=== PATIENT | male | born 1945 | race Caucasian/White ===

== ENCOUNTER 2018-10-18 12:24 | Inpatient (IN) ==
[2018-10-18 14:25] LABS: Basophils % 0.3 %; Eosinophils # 0.4 K/mcL (0.0-0.6); Eosinophils % 5.7 %; Hematocrit 30.5 % (37.5-50.1); Hemoglobin 10.4 g/dL (12.9-16.9); Immature Granulocytes % 0.3 % (0-4); Lymphocytes # 1.3 K/mcL (0.6-4.6); Lymphocytes % 19.3 %; Mean Corpuscular HGB Conc 34.1 g/dL (31.6-35.5); Mean Platelet Volume 9.1 fL (9.4-12.4); Monocytes # 0.7 K/mcL (0.0-1.3); Monocytes % 10.3 %; Neutrophils # 4.4 K/mcL (1.6-8.9); Platelet Count 140 K/mcL (140-400); Red Blood Count 3.59 M/mcL (4.19-5.50); Red Cell Distribution Width 12.9 % (11.5-14.5); Segmented Neutrophils % 64.1 %; White Blood Count 6.9 K/mcL (4.3-11.1)
[2018-10-18 14:30] LABS: INR 1.1
[2018-10-18 14:58] LABS: Albumin 4.3 g/dL (3.5-5.7); Albumin/Globulin Ratio 1.8 (1.1-2.2); Bilirubin,Total 0.7 mg/dL (0.3-1.0); Calcium 9.2 mg/dL (8.6-10.3); Globulin 2.4 g/dL (2.4-3.5); Potassium 3.8 mEq/L (3.5-5.1); Total Protein 6.7 g/dL (6.4-8.9)
[2018-10-18] MEDS ORDERED: *HR* LORazepam 1 MG TABLET PO PRN (15:00)
[2018-10-18] MEDS ORDERED: hydrOXYzine pamoate 25 MG CAPSULE PO PRN ×2 (15:00→16:12)
--- NOTE | 2018-10-18 15:00 | Internal Med History&Physical ---
<Tristan Jeong M - Last Filed: 10/18/18 16:48> Date of Encounter: 10/18/18 Time of Encounter: 15:00 Internal Medicine - H&P: HPI Chief complaint: Right hip fracture Admitted From: Direct Admit Plans for Post Hospital Care: Transfer [facility] Facility History of present illness: Mr. Almazan is a 73 year old male [facility] ([place]) resident w/PMHx of MRDD, CAD s/p CABGx3, HTN, HLD, DM, BPH, anxiety. Direct admit from Dr. Collier to the [facility] hospital service for recent right hip fracture s/p syncope, fall. History difficult to obtain secondary to MRDD, however pt reports falling in bathroom 1 day ago after having successful BM. He states that he has constipation and he was excited to have his first BM in days. Upon standing, he reports the "room spinning around" and fell to the bathroom tile, hitting the back of his head on the wall. He denies LOC. He stated that after the fall he "thought he was going to " and had extreme anxiety about the incident. According to nurse reports from [place], Mr. Almazan fell at approximately 1745 last night 10/17/18. The fall was unwitnessed, although it was noted that he was in the bathroom. Following the fall, pt reported to staff that he slid off the toilet, down his back, and hit the back of his head. He was then assisted into a wheelchair by nursing staff and taken to the day room. He was assessed and reported only mild right knee pain. Once the patient was brought back to his room, it was later reported that he was unable to stand and the staff contacted orthopedics. Neurochecks were performed throughout the night which were negative. Was seen by Dr. Collier for right femur fracture. XR demonstrated nondisplaced stress fracture of the right femoral neck. There is sclerosis along the medial margin of the right femoral neck with trabecular thickening suggesting chronic stress reaction. There is a discrete fractureline extending through the right femoral neck. Medical history was difficult to obtain due to MRDD history, however we were able to obtain active medication list and PMHx from [facility] EHR. Of note, patient has a history of multiple falls and fractures. Brother Hakeem assists in medical decision making. Currently, the patient is comfortable, in bed. He denies pain. VAS 0/10 at rest. He is unable to ambulate. He denies chest pain, sob, dizziness, n/v, headache. Past Med Surg Social Fam HX - Past Medical History Medical history: diabetes, hyperlipidemia, hypertension, myocardial infarction Additional medical history: BPH Psychiatric history: no psych history - Past Surgical History Surgical History: cholecystectomy, coronary bypass (CABG), herniorrhaphy - Social History Smoking Status: Former smoker Smokeless Tobacco Status: No Alcohol use: none Drug use: none, other Internal Medicine - H&P: Meds Aspirin [Lo-Dose Aspirin EC] 81 mg PO QAM 01/17/17 [History] Atorvastatin [Lipitor] 40 mg PO HS 01/17/17 [History] Etanercept [Enbrel] 50 mg SQ 2XW 01/17/17 [History] Insulin ASPART [NovoLOG] 40 unit SQ HS 01/17/17 [History] [place]-3/Dha/Epa/Fish Oil [Fish Oil 1,000 mg Softgel] 2 each PO BID 01/17/17 [History] Tamsulosin [Flomax] 0.4 mg PO DAILY 01/17/17 [History] metFORMIN [Glucophage] 500 mg PO BIDWM 01/17/17 [History] Metoprolol [Lopressor] 12.5 mg PO BID 08/30/17 [History] Docusate [Colace] 100 mg PO BID 10/18/18 [History] Ibuprofen [Ibu] 400 mg PO HS PRN 10/18/18 [History] LORazepam [Ativan] 2 mg IJ Q8HR 10/18/18 [History] Lisinopril/Hydrochlorothiazide [Lisinopril-Hctz 20-25 mg Tab] 1 each PO BID 10/18/18 [History] Oxybutynin [Ditropan] 5 mg PO BID 10/18/18 [History] buPROPion HCl [Bupropion HCl ER] 300 mg PO DAILY 10/18/18 [History] hydrOXYzine HCl [Hydroxyzine HCl] 25 mg PO Q8HR PRN 10/18/18 [History] Allergy/AdvReac Type Severity Reaction Status Date / Time No Known Allergies Allergy Verified 08/30/17 13:05 All Systems PM: A 10-system review of systems was performed and is negative for pertinent findings except as documented above in the HPI. - Constitutional Constitutional: no chills, no fatigue, no fever(s), no malaise - EENT Eyes: no blurry vision, no change in vision, no diplopia, no loss of vision Ears: no decreased hearing, no tinnitus Nose, mouth and throat: no dysphagia, no facial pain, no neck pain, no sore throat - Cardiovascular Cardiovascular ROS IM: dyspnea on exertion, no chest pain, no diaphoresis, no dyspnea, no palpitations - Respiratory Respiratory: dyspnea on exertion, no cough, no wheezing, no stridor, no chest congestion - Gastrointestinal Gastrointestinal: constipation, no abdominal pain, no nausea, no vomiting - Genitourinary Genitourinary ROS male: difficulty urinating, nocturia, urinary frequency, urinary hesitancy, no hematuria - Musculoskeletal Musculoskeletal ROS IM: arthralgias, stiffness, no joint swelling, no neck pain - Integumentary Integumentary IM: rash (psoriasis), no sores, no jaundice - Neurological Neurological ROS: disequilibrium (at time of fall), vertigo (at time of fall), no confusion, no focal weakness, no loss of vision, no numbness, no paresthesias, no tremor(s) - Psychiatric Psychiatric: anxiety, no behavioral changes, no depression, no hallucinations, no memory loss - Endocrine Endocrine IM: no excessive sweating, no fatigue - Hematologic/Lymphatic Hematologic/Lymphatic: no easy bleeding, no easy bruising - Constitutional General appearance: Present: A&O X 3, pleasant, no acute distress Exam: see below - Head Head exam: Present: atraumatic, normocephalic - Eye Eye exam: Present: EOMI, normal appearance, conjuntiva pink. Absent: scleral icterus Pupils: Present: PERRL - ENT ENT exam: Present: mucous membranes moist, normal oropharynx - Neck Neck exam general surgery: Present: full ROM, normal inspection, supple, trachea midline. Absent: tenderness - Respiratory Respiratory exam: Present: CTAB. Absent: chest wall tenderness, decreased breath sounds, rales, rhonchi, wheezes - Cardiovascular Cardiovascular exam: Present: RRR, +S1, +S2. Absent: diastolic murmur, JVD, systolic murmur - GI/Abdominal GI/Abdominal exam: Present: normal bowel sounds, soft. Absent: distended, guarding, rebound, tenderness - Extremities Exam Extremities exam: Absent: cyanotic, joint swelling, pedal edema Additional comments: Right hip without edema, bruising. Right leg appears to be in very mild external rotation when compared to the left, however there is no evidence of leg length discrepancy bilaterally. - Back Exam Back exam: Absent: muscle spasm, paraspinal tenderness, vertebral tenderness - Neurological Exam Neurological exam: Present: CN II-XII intact, reflexes normal, no focal defic its, strengths equal and symetr throughout. Absent: motor sensory deficit, facial droop, speech deficit - Psychiatric Psychiatric exam: Present: normal affect - Skin Additional comments: rash present at the right lateral hip and lumbar region. Appears to be psoriatic in etiology. Internal Med - H&P Results - Labs CBC & Chem 7: 10/18/18 14:00 10/18/18 14:00 Labs: Short CBC 10/18/18 Range/Units 14:00 WBC 6.9 (4.3-11.1) K/mcL Hgb 10.4 L (12.9-16.9) g/dL Hct 30.5 L (37.5-50.1) % Plt Count 140 (140-400) K/mcL Neutrophils # 4.4 (1.6-8.9) K/mcL BMP 10/18/18 14:00 Sodium 135 L Potassium 3.8 Chloride 100 Carbon Dioxide 26 BUN 16 Creatinine 1.49 H Glucose 134 H Calcium 9.2 Liver Function 10/18/18 Range/Units 14:00 Total Bilirubin 0.7 (0.3-1.0) mg/dL AST 15 (13-39) Units/L ALT 14 (7-52) Units/L Alkaline Phosphatase 81 (34-104) Units/L Albumin 4.3 (3.5-5.7) g/dL - Assessment and Plan (1) Fracture of right hip Current Visit: Yes Status: Acute Assessment and plan: Mr. Almazan is a 73 y/o M with non-displaced right hip fracture s/p fall one day ago. He was admitted directly to the hospitalist service from Dr. Collier office. Orthopedic surgery consulted and agreed to take on case. Appreciate there assistance. Surgery scheduled for tomorrow, will need cardiac clearance. Pt is comfortable, pain 0/10, non-ambulatory. CT head and neck negative for acut e pathology. - Diabetic diet for dinner. - NPO at midnight. - PT/INR, PTT. Awaiting results. - Bed rest, fall precautions. Qualifiers: Encounter type: initial encounter Fracture type: closed Qualified Code(s): S72.001A - Fracture of unspecified part of neck of right femur, initial encounter for closed fracture (2) Vasovagal syncope Current Visit: Yes Status: Acute Assessment and plan: Pt reported fall yesterday following episode of dizziness and lightheadedness while attempting to have BM and when rising from the toilet. He states that this was his first bowel movement in days and that he suffers from chronic constipation. The etiology of his fall was likely vasovagal, secondary to straining while having BM. However, we can not rule out orthostatic hypotension at this time. - CT head negative for acute intracranial abnormality. - CT c-spine negative for fracture. - Orthostatics will be performed tomorrow. (3) Pre-operative cardiovascular examination, high risk surgery Current Visit: Yes Status: Acute Assessment and plan: Patient has a history of CAD s/p 3-vessel CABG, HTN, HFrEF. Echocardiogram pe rformed in 2011 revealed EF of 35-40%. Patient denies chest pain at rest and with exertion. He endorses some SOB with exertion but not at rest. Likely related to deconditioning. Creatinine 1.49, BNP 302. No acute ischemic changes or ST depression/elevation on EKG, likely first degree AVB, poor R wave progression. - Repeat echo. - RCRI=2, Class 3 risk. 10.1% risk for 30 day post op cardiac event. - BNP 302. Will require post operative EKG, troponins. (4) Heart failure with reduced ejection fraction Current Visit: Yes Status: Chronic Assessment and plan: History of HFrEF. EF 35-40% in 2012. Asymptomatic. BNP 302. - Continue home lopressor 12.5mg BID. - Continue home lisinopril-HCTZ 20-25mg. - Repeat echocardiogram. - I & Os daily. Qualifiers: Heart failure chronicity: chronic Qualified Code(s): I50.22 - Chronic systolic (congestive) heart failure (5) History of three vessel coronary artery bypass Current Visit: Yes Status: Chronic Assessment and plan: Will need cardiac clearance with repeat echo. EKG, BNP. Asymptomatic at this ti me. Denies cp, sob, diaphoresis, n/v. - Continue home atorvastatin 40 mg. - ASA 81 mg. - No acute ischemic changes or ST depression/elevation on EKG, possible first degree AVB (6) CAD (coronary artery disease) Current Visit: Yes Status: Chronic Assessment and plan: Asymptomatic. No acute ischemic changes or ST depression/elevation on EKG. - Continue ASA, atorvastatin. Qualifiers: Coronary Disease-Associated Artery/Lesion type: ambler artery [place] vs. transplanted heart: ambler heart Associated angina: without angina Qualified Code(s): I25.10 - Atherosclerotic heart disease of ambler coronary artery without angina pectoris (7) Type 2 diabetes mellitus Current Visit: Yes Status: Chronic Assessment and plan: History of type 2 diabetes mellitus without complication. No paresthesias, vision changes. Current BS 134. - Accuchecks ACHS. - Humalog sliding scale. - NPO at midnight, avoid hypoglycemia. Qualifiers: Diabetes mellitus [employer] insulin use: without fpc use Diabetes mellitus complication status: without complication Qualified Code(s): E11.9 - Type 2 diabetes mellitus without complications (8) Chronic anemia Current Visit: Yes Status: Chronic Assessment and plan: Patient has a history of chronic, normocytic, asymptomatic anemia. Hbg currently 10.4, will obtain daily CBC and continue to monitor. (9) Benign prostate hyperplasia Current Visit: Yes Status: Chronic Assessment and plan: Patient w/history of BPH with urinary frequency. Asymptomatic at this time. Denies bowel/bladder incontinence. - Continue home oxybutinin 5 mg BID. - Continue Flomax 0.4 mg daily. Qualifiers: Lower urinary tract symptom presence: symptoms present Lower urinary tract symptom detail: urinary frequency Qualified Code(s): N40.1 - Benign prostatic hyperplasia with lower urinary tract symptoms; R35.0 - Frequency of micturition (10) Anxiety Current Visit: Yes Status: Chronic Assessment and plan: Continue home Vistaril 25mg PO Q8H PRN. Pt currently asymptomatic, at baseline. - Monitor for mental status changes overnight. - Time Spent With Patient Total time spent is greater than 50% in coordination of care (as documented) at patient's floor/unit and/or counseling patient: Greater than 35 minutes <Vannesa Goldberg - Last Filed: 10/18/18 17:04> Date of Encounter: 10/18/18 Internal Medicine - H&P: HPI History of present illness: Mr. Almazan is a 73 year old male Past Med Surg Social Fam HX - Additional Family History Additional family history: unable to obtain from pt given MRDD, none documented in [employer], would be non contributory given admit for hip fracture All Systems PM: A 10-system review of systems was performed and is negative for pertinent findings except as documented above in the HPI. - Constitutional Vitals: Temp Pulse Resp BP Pulse Ox 98.4 F 84 16 134/78 97 10/18/18 15:00 10/18/18 15:00 10/18/18 15:00 10/18/18 15:00 10/18/18 15:00 Internal Med - H&P Results - Labs CBC & Chem 7: 10/18/18 14:00 10/18/18 14:00 Labs: Short CBC 10/18/18 Range/Units 14:00 WBC 6.9 (4.3-11.1) K/mcL Hgb 10.4 L (12.9-16.9) g/dL Hct 30.5 L (37.5-50.1) % Plt Count 140 (140-400) K/mcL Neutrophils # 4.4 (1.6-8.9) K/mcL BMP 10/18/18 14:00 Sodium 135 L Potassium 3.8 Chloride 100 Carbon Dioxide 26 BUN 16 Creatinine 1.49 H Glucose 134 H Calcium 9.2 Liver Function 10/18/18 Range/Units 14:00 Total Bilirubin 0.7 (0.3-1.0) mg/dL AST 15 (13-39) Units/L ALT 14 (7-52) Units/L Alkaline Phosphatase 81 (34-104) Units/L Albumin 4.3 (3.5-5.7) g/dL - Impressions ITS Impressions Cervical Spine CT 10/18/18 14:28 IMPRESSION: CT head: No evidence for acute intracranial pathology. Findings compatible with age related atrophy and likely chronic small vessel ischemic change. CT cervical spine: No acute abnormality of the cervical spine. Multilevel degenerative changes. D/ / 10/18/2018 15:25:34 Norm Coronel MD / zulema Interpreting Provider: Norm Coronel MD Head CT 10/18/18 14:28 IMPRESSION: CT head: No evidence for acute intracranial pathology. Findings compatible with age related atrophy and likely chronic small vessel ischemic change. CT cervical spine: No acute abnormality of the cervical spine. Multilevel degenerative changes. D/ / 10/18/2018 15:25:34 Norm Coronel MD / zulema Interpreting Provider: Norm Coronel MD - Time Spent With Patient Total time spent is greater than 50% in coordination of care (as documented) at patient's floor/unit and/or counseling patient: - Attending Attestation I examined this patient and my medical decision-making was reviewed with the Resident Physician Dr Jeong. I agree with the documented findings, disposition and treatment plan as described except to the extent set forth below. Mr Almazan is admitted for hip fracutre requiring surgical intervention awake, pleasant, no family present. currently not having pain. denies cp, pressure, plapitations or dizziness. denies any cp at home with exertion. no sob currently but does have sometimes when walking at home. given his MRDD he cannot further qualify or quantify his sob. gen- alert, awake,appears stated age cv- reg rate and rhythm, normal s1,s2, no murmurs appreciated, no pitting le edema lungs- ctabl, no wheezing, rhonchi or crackles abd- soft, non tender, non distended, + bs neuro- AAOx3, CN grossly intact R femoral neck fracture- ortho consulted, prn pain control, needs pre op risk assessment prior to OR, as well as family assistance in consent pre op risk assessment RCRI score 2 which makes him class III risk and 10.1% risk for 30 d post op cardiac event/arrest CAD s/p CABG, HFrEF last echo 2016 reviewed-echo today pending BNP >92 therefore will require post op ekg and daily trop for 2-3 d post op ekg w baseline artifact, appear NSR likely first degree AVB, poor R wave progression, no apparent acute ischemic changes, ST depression/elevation or TWIs, Q wave lead III is old -will await echo result, may require cards eval for further pre op risk assessment MARCELO v CKD, cannot determine chronicity on chart review- avoid nephro toxins, repeat in am chronic anemia at baseline HFrEF EF 35-40%, stable- i/os daily weights, cont home meds bb and acei, echo as above further diagnoses and plan as noted by resident appears to be full code, awaiting snf facesheet being faxed, full code until confirmed otherwise appears his brother Hakeem aides in decision making given his dx MRDD, also awaiting info from SNF meds ordered as are documented in [facility] from recent outpt visits, SNF also sending MAR FAMILY HISTORY: unable to obtain from pt given MRDD, none documented in [employer], would be non contributory given admit for hip fracture
--- NOTE | 2018-10-18 15:30 | Orthopedic Consult Note ---
Date of Encounter: 10/18/18 Time of Encounter: 15:15 Assessment and Plan (1) Fracture of right hip Current Visit: Yes Status: Acute Xrays of right hip show nondisplaced femoral neck fracture. Discussed case with Dr. Garvey who recommends right hip pinning to be performed 10/19/18 pending medical clearance. NWB to RLE until surgery, minimlize movement of right leg. Pain control per primary team. sill working on finding contact info for family/POA to discuss consent for surgery. Qualifiers: Encounter type: initial encounter Fracture type: closed Qualified Code(s): S72.001A - Fracture of unspecified part of neck of right femur, initial encounter for closed fracture History of Present Illness Chief complaint: right hip pain HPI: Mr. Almazan is a 73 year old male brought to [place] from Dr. Collier office in [place] for right hip pain. He is MR and history is unreliable but he states he was in the bathroom 1-2 days ago and felt dizzy then slipped and fell. States he has had pain in right hip but currently he denies any pain or numbness in leg. He states he does have brother, Hakeem and will try to contact him for more information. I did find most recent PCP visit note in [facility]W from 10/12 and this was given to nurse to updatePer medical history and med list while awaiting fax from the [facility] where patient is now living. Previous records listed him as staying in a [facility] but when nurse called they state he no longer lives there and could give no records. Per [facility] note PMH includes: essential HTN, T2DM, HLD, CAD, psoriasis, polyarthritis, anxiety/depression, mental retardation, anemia, hyponatremia, BPH, OAB. Past Med Surg Social Fam HX - Past Medical History Medical history: diabetes, hyperlipidemia, hypertension, myocardial infarction Additional medical history: BPH Psychiatric history: no psych history - Past Surgical History Surgical History: cholecystectomy, coronary bypass (CABG), herniorrhaphy - Social History Smoking Status: Former smoker Smokeless Tobacco Status: No Alcohol use: none Drug use: none, other Medications and Allergies Aspirin [Lo-Dose Aspirin EC] 81 mg PO QAM 01/17/17 [History] Atorvastatin [Lipitor] 40 mg PO HS 01/17/17 [History] Etanercept [Enbrel] 50 mg SQ 2XW 12/05/17 [History] Insulin ASPART [NovoLOG] 40 unit SQ HS 01/17/17 [History] [place]-3/Dha/Epa/Fish Oil [Fish Oil 1,000 mg Softgel] 2 each PO BID 01/17/17 [History] Tamsulosin [Flomax] 0.4 mg PO DAILY 01/17/17 [History] metFORMIN [Glucophage] 500 mg PO BIDWM 01/17/17 [History] Metoprolol [Lopressor] 12.5 mg PO BID 08/30/17 [History] Docusate [Colace] 100 mg PO BID 10/18/18 [History] Ibuprofen [Ibu] 400 mg PO HS PRN 10/18/18 [History] LORazepam [Ativan] 2 mg IJ Q8HR 10/18/18 [History] Lisinopril/Hydrochlorothiazide [Lisinopril-Hctz 20-25 mg Tab] 1 each PO BID 10/18/18 [History] Oxybutynin [Ditropan] 5 mg PO BID 10/18/18 [History] buPROPion HCl [Bupropion HCl ER] 300 mg PO DAILY 10/18/18 [History] hydrOXYzine HCl [Hydroxyzine HCl] 25 mg PO Q8HR PRN 10/18/18 [History] Allergy/AdvReac Type Severity Reaction Status Date / Time No Known Allergies Allergy Verified 08/30/17 13:05 ROS unobtainable: due to mental status All Systems Reviewed: The remainder of the systems were reviewed and are negative Physical Exam - Hip right Tenderness with palpation: none (right hip has no open wounds but does appear to have a very superficial skin abrasion to lateral hip, no erythema or ecchymosis. no obvious swelling noted to RLE. no tenderness to palpation of right hip, no calf tenderness to palpation. good dorsiflexion of foot, sensation intact distally.) Results - Labs Result Diagrams: 10/18/18 14:00 10/18/18 14:00 Labs: Abnormal lab results RBC 3.59 M/mcL (4.19-5.50) L 10/18/18 14:00 Hgb 10.4 g/dL (12.9-16.9) L 10/18/18 14:00 Hct 30.5 % (37.5-50.1) L 10/18/18 14:00 MPV 9.1 fL (9.4-12.4) L 10/18/18 14:00 PT 13.0 Seconds (9.4-12.1) H 10/18/18 14:00 Sodium 135 mEq/L (136-145) L 10/18/18 14:00 Creatinine 1.49 mg/dL (0.70-1.30) H 10/18/18 14:00 Est GFR ( Amer) 56 (> 60) L 10/18/18 14:00 Est GFR (Non-Af Amer) 46 (> 60) L 10/18/18 14:00 Glucose 134 mg/dL (70-105) H 10/18/18 14:00 B-Natriuretic Peptide 302 pg/mL (Less than 100) H 10/18/18 14:00 H & H 10/18/18 Range/Units 14:00 Hgb 10.4 L (12.9-16.9) g/dL Hct 30.5 L (37.5-50.1) % All other labs normal. - Diagnostic results Hip x-ray: report reviewed, image reviewed Consult Discharge Plan - Plan Referrals: Michele Armando MD [Primary Care Provider] - - Attending Attestation Case and plan of care discussed with supervising physician, Dr. Garvey, who was available for all aspects of care.
[2018-10-18] MEDS ORDERED: D5% in Water 1,000 ML IVC PRN (15:58)
[2018-10-18] MEDS ORDERED: *HR* Dextrose 50 % in Water (Syg) 50 ML SYRINGE IVP PRN (15:58)
[2018-10-18] MEDS ORDERED: Dextrose Gel 15 GM/37.5 ML TUBE PO PRN ×2 (15:58)
--- NOTE | 2018-10-18 16:16 | Event Note ---
Date of Encounter: 10/18/18 Time of Encounter: 16:00 to serve as attending attestation pending completion of H&P by resident I examined this patient and my medical decision-making was reviewed with the Resident Physician Dr Jeong. I agree with the documented findings, disposition and treatment plan as described except to the extent set forth below. Mr Almazan is admitted for hip fracutre requiring surgical intervention awake, pleasant, no family present. currently not having pain. denies cp, pressure, plapitations or dizziness. denies any cp at home with exertion. no sob currently but does have sometimes when walking at home. given his MRDD he cannot further qualify or quantify his sob. gen- alert, awake,appears stated age cv- reg rate and rhythm, normal s1,s2, no murmurs appreciated, no pitting le edema lungs- ctabl, no wheezing, rhonchi or crackles abd- soft, non tender, non distended, + bs neuro- AAOx3, CN grossly intact R femoral neck fracture- ortho consulted, prn pain control, needs pre op risk assessment prior to OR, as well as family assistance in consent pre op risk assessment RCRI score 2 which makes him class III risk and 10.1% risk for 30 d post op cardiac event/arrest CAD s/p CABG, HFrEF last echo 2015 reviewed-echo today pending BNP >92 therefore will require post op ekg and daily trop for 2-3 d post op ekg w baseline artifact, appear NSR likely first degree AVB, poor R wave progression, no apparent acute ischemic changes, ST depression/elevation or TWIs, Q wave lead III is old -will await echo result, may require cards eval for further pre op risk assessment MARCELO v CKD, cannot determine chronicity on chart review- avoid nephro toxins, repeat in am chronic anemia at baseline HFrEF EF 35-40%, stable- i/os daily weights, cont home meds bb and acei, echo as above further diagnoses and plan as noted by resident appears to be full code, awaiting [facility] facesheet being faxed, full code until confirmed otherwise appears his brother Hakeem aides in decision making given his dx MRDD, also awaiting info from [facility] meds ordered as are documented in [facility] from recent outpt visits, [facility] also sending MAR
[2018-10-18] MEDS: Insulin LISPRO 300 UNITS/3 ML VIAL SQ SCH (17:06)
--- NOTE | 2018-10-18 17:26 | Anesthesia Evaluation PreOp ---
Date of Encounter: 10/19/18 Time of Encounter: 17:36 - Past History Planned Operation: Right Hip Percutaneous Pinning Cardiac History: AK, CHF, HTN, Hyperlipidemia, Cardiac Surgery (CABG x 3), Other (ischemic heart disease with EF 34% by echo 10/18/2018) Pulmonary History: Former smoker, Snore PUTTER IN History: Other (MRDD) Other Medical History: Diabetes Type II Anesthesia History: No Prior Anesthetic Complications, Past Anesthesia Alcohol Use: none Drug use: none, other Medications and Allergies Aspirin [Lo-Dose Aspirin EC] 81 mg PO 0700 01/17/17 [History] Atorvastatin [Lipitor] 40 mg PO 2200 01/17/17 [History] Etanercept [Enbrel] 50 mg SQ MOTH 01/17/17 [History] [place]-3/Dha/Epa/Fish Oil [Fish Oil 1,000 mg Softgel] 2,000 mg PO 0700,1700 01/17/17 [History] Tamsulosin [Flomax] 0.4 mg PO 0700 01/17/17 [History] metFORMIN [Glucophage] 500 mg PO 0700,1700 01/17/17 [History] Metoprolol [Lopressor] 12.5 mg PO 0700,1700 08/30/17 [History] Bupropion HCl [Wellbutrin Xl] 300 mg PO 0700 10/18/18 [History] Docusate [Colace] 100 mg PO 0700 10/18/18 [History] Ibuprofen [Ibu] 400 mg PO 2200 PRN 10/18/18 [History] LORazepam [Ativan] 1 mg PO TID PRN 10/18/18 [History] Lisinopril/Hydrochlorothiazide [Lisinopril-Hctz 20-25 mg Tab] 1 each PO 0700,1700 10/18/18 [History] Oxybutynin [Ditropan] 10 mg PO 0700,1700 10/18/18 [History] hydrOXYzine HCl [Hydroxyzine HCl] 25 mg PO 0700,1500,2300 PRN 10/18/18 [History] Allergy/AdvReac Type Severity Reaction Status Date / Time No Known Allergies Allergy Verified 08/30/17 13:05 - Meds/Allergy Pre-op Review Medications Reviewed: Yes Allergies Reviewed: Yes Beta Blockers on Current Med List: Yes If Beta Blockers taken, Date/Time (Last Dose taken): 10/19/2018 at 0757 Anesthesia Results - Labs 10/19/18 01:38 10/19/18 01:38 - Imaging EKG: report reviewed (08/30/2017 SINUS BRADYCARDIA INCOMPLETE RIGHT BUNDLE BRANCH BLOCK INFERIOR MYOCARDIAL INFARCTION, PROBABLY OLD) Additional studies: 10/19/2018 Stress Impression: Pharmacologic stress ECG is negative for ischemia at level of heart rate achieved. Gated EF = 34%. Large sized, moderate to severe intensity, fixed perfusion defect involving the anteroseptal, inferoseptal, inferior, and apex segments consistent with prior infarct(s). Perfusion imaging was negative for ischemia. 10/18/2018 Echo Impressions: LVEF 35-40%. Normal LV chamber size, wall thickness. Moderate segmental left ventricular systolic dysfunction. Atypical septal motion consistent with postoperative status. Moderate left ventricular diastolic dysfunction. Normal right ventricular structure and function. Mild mitral regurgitation. Mild pulmonary hypertension. Anesthesia Exam Vital Signs/O2 Sat/Glucose, Most Recent Temp Pulse Resp BP Pulse Ox 99.0 F 62 16 134/80 99 10/19/18 16:31 10/19/18 16:31 10/19/18 16:31 10/19/18 16:31 10/19/18 16:31 Blood Glucose* 135 Height: 5'11''/1.8m Weight: 177 lbs/80.7 kg NPO (# of Hours): 8 Pain Scale: 0 (at rest) Pain Scale Used: Numeric (1 - 10) - HEENT Pupil (Motor): EOMI Mallampati: II Teeth: Edentulous Oral Opening: Greater than 3 - PUTTER IN LOC: Oriented PUTTER IN Motor: Normal RUE, Normal LUE, Normal RLE, Normal LLE, Normal Face PUTTER IN Sensory: Normal: RUE, LUE, RLE, LLE, Face - Cardiac Rhythm: Regular Murmur: None - Pulmonary Breath Sounds: bilateral Clear Respiratory Effort: Symmetrical Anesthesia Assess/Plan ASA Score: 4 (Patient has MRDD and unable to give informed consent. Consent obtained from sister, Marcy Almazan. Patient's family understands that patient is at increased risk for perioperative complications including AK, CVA, post-op vent support and . Family wishes to proceed.) Level of consciousness: Cooperative, Oriented, Tranquil Anesthetic Plan: General Monitoring Plan: Standard Monitors Recovery Plan: PACU
[2018-10-18] MEDS ORDERED: Perflutren Lipid Microsphere 1.3 ML in 0.9 % Sodium Chloride 8.7 ML IVP ONE (18:57)
[2018-10-18] MEDS: Acetaminophen 325 MG TABLET PO PRN (20:30)
[2018-10-18] MEDS ORDERED: Insulin LISPRO 300 UNITS/3 ML VIAL SQ SCH (21:00)
[2018-10-19 02:04] LABS: Basophils % 0.3 %; Eosinophils # 0.7 K/mcL (0.0-0.6); Eosinophils % 10.1 %; Hematocrit 30.5 % (37.5-50.1); Hemoglobin 10.1 g/dL (12.9-16.9); Immature Granulocytes % 0.1 % (0-4); Lymphocytes # 2.1 K/mcL (0.6-4.6); Lymphocytes % 30.5 %; Mean Corpuscular HGB Conc 33.1 g/dL (31.6-35.5); Mean Corpuscular Hemoglobin 28.9 pg (28.0-33.3); Mean Corpuscular Volume 87.4 fL (83.0-100.0); Mean Platelet Volume 9.2 fL (9.4-12.4); Monocytes # 0.8 K/mcL (0.0-1.3); Monocytes % 11.3 %; Neutrophils # 3.2 K/mcL (1.6-8.9); Platelet Count 139 K/mcL (140-400); Red Blood Count 3.49 M/mcL (4.19-5.50); Segmented Neutrophils % 47.7 %; White Blood Count 6.7 K/mcL (4.3-11.1)
[2018-10-19 02:23] LABS: BUN/Creatinine Ratio 12 (6-26); Blood Urea Nitrogen 17 mg/dL (8-23); Calcium 8.8 mg/dL (8.6-10.3); Carbon Dioxide 23 mEq/L (23-29); Chloride 101 mEq/L (98-107); Glucose 153 mg/dL (70-105); Osmolality,Calculated 283 (280-300); Sodium 134 mEq/L (136-145); eGFR For African Americans > 60 (> 60); eGFR For Non-African Americans 51 (> 60)
[2018-10-19] MEDS: Acetaminophen 325 MG TABLET PO PRN (03:30)
[2018-10-19] MEDS: Insulin LISPRO 300 UNITS/3 ML VIAL SQ SCH ×4 (07:58→22:06)
--- NOTE | 2018-10-19 08:24 | Internal Med Progress Note ---
<Vannesa Goldberg - Last Filed: 10/19/18 12:31> Hospitalist Progress Note - Encounter Date of Encounter: 10/19/18 - Exam Vitals: Temp Pulse Resp BP Pulse Ox 98.8 F 69 16 122/77 96 10/19/18 07:00 10/19/18 07:00 10/19/18 07:00 10/19/18 07:00 10/19/18 07:00 - Time Spent with Patient Total time spent is greater than 50% in coordination of care (as documented) at patient's floor/unit and/or counseling patient: Internal Medicine: Result - Labs CBC & Chem 7: 10/19/18 01:38 10/19/18 01:38 Labs: Short CBC 10/18/18 10/19/18 Range/Units 14:00 01:38 WBC 6.9 6.7 (4.3-11.1) K/mcL Hgb 10.4 L 10.1 L (12.9-16.9) g/dL Hct 30.5 L 30.5 L (37.5-50.1) % Plt Count 140 139 L (140-400) K/mcL Neutrophils # 4.4 3.2 (1.6-8.9) K/mcL BMP 10/18/18 10/19/18 14:00 01:38 Sodium 135 L 134 L Potassium 3.8 4.0 Chloride 100 101 Carbon Dioxide 26 23 BUN 16 17 Creatinine 1.49 H 1.38 H Glucose 134 H 153 H Calcium 9.2 8.8 Liver Function 10/18/18 Range/Units 14:00 Total Bilirubin 0.7 (0.3-1.0) mg/dL AST 15 (13-39) Units/L ALT 14 (7-52) Units/L Alkaline Phosphatase 81 (34-104) Units/L Albumin 4.3 (3.5-5.7) g/dL - ABG Interpretation ABG results: PT/INR, D-dimer PT 13.0 Seconds (9.4-12.1) H 10/18/18 14:00 - Impressions Impressions Echocardiogram 10/18/18 13:28 Impressions: LVEF 35-40%. Normal LV chamber size, wall thickness. Moderate segmental left ventricular systolic dysfunction. Atypical septal motion consistent with postoperative status. Moderate left ventricular diastolic dysfunction. Normal right ventricular structure and function. Mild mitral regurgitation. Mild pulmonary hypertension. Left Ventricular Wall Motion: Rest Echo Findings The apex, apical inferior, apical septal, mid inferior septal and mid anterior septal choi were hypokinetic. All other wall segments showed normal motion. Findings: Study Quality * Technically sub-optimal due to poor echocardiographic windows. ECG Findings * Normal sinus rhythm. Left Ventricle * LVEF 35-40%. * Normal LV chamber size, wall thickness. * Moderate segmental left ventricular systolic dysfunction. * Moderate left ventricular diastolic dysfunction. Right Ventricle * Normal right ventricular structure and function. Left Atrium * Mildly dilated left atrium. Right Atrium * Mildly dilated right atrium. Interatrial Septum * Interatrial septum not well evaluated. Aortic Valve * Aortic valve not well visualized. * Mildly calcified aortic valve annulus. * No aortic regurgitation. * No aortic stenosis. Mitral Valve * Normal mitral valve structure. * Mild mitral regurgitation. * No mitral stenosis. Tricuspid Valve * Normal tricuspid valve structure and function. * Trace tricuspid regurgitation. * Mild pulmonary hypertension. Pulmonic Valve * Pulmonic valve is not well visualized. * No pulmonic regurgitation. Aorta * Normally sized aortic root. Pericardium * The pericardium appears normal. IVC * The IVC is not well evaluated. Pulmonary Artery * Pulmonary artery not well visualized. Cervical Spine CT 10/18/18 14:28 IMPRESSION: CT head: No evidence for acute intracranial pathology. Findings compatible with age related atrophy and likely chronic small vessel ischemic change. CT cervical spine: No acute abnormality of the cervical spine. Multilevel degenerative changes. D/ / 10/18/2018 15:25:34 Norm Coronel MD / zulema Interpreting Provider: Norm Coronel MD Head CT 10/18/18 14:28 IMPRESSION: CT head: No evidence for acute intracranial pathology. Findings compatible with age related atrophy and likely chronic small vessel ischemic change. CT cervical spine: No acute abnormality of the cervical spine. Multilevel degenerative changes. D/ / 10/18/2018 15:25:34 Norm Coronel MD / zulema Interpreting Provider: Norm Coronel MD Chest X-Ray 10/19/18 07:51 IMPRESSION: 1. No active pulmonary disease. D/ / Shemar Marinelli MD / Shemar Marinelli MD Interpreting Provider: Shemar Marinelli MD Consult Discharge Plan - Plan Referrals: Michele Armando MD [Primary Care Provider] - - Attending Attestation I examined this patient and my medical decision-making was reviewed with the Resident Physician Dr Jeong. I agree with the documented findings, disposition and treatment plan as described except to the extent set forth below. Mr Almazan is admitted for hip fracture requiring surgical intervention awake, pleasant, no family present. no cp or current sob at rest. no leg pain. gen- alert, awake,appears stated age cv- reg rate and rhythm, normal s1,s2, no pitting le edema lungs- ctabl, normal resp effort abd- soft, non tender, non distended, + bs neuro- AAOxperson, place, situation R femoral neck fracture- needs cards pre op risk assessment prior to OR, as well as family assistance in consent, tentative OR tonight w ortho pre op risk assessment RCRI score 2 which makes him class III risk and 10.1% risk for 30 d post op cardiac event/arrest CAD s/p CABG, HFrEF reporting dyspnea on exertion -appreciate cards pre op risk assessment, stess test this morning, will follow results and communicate with Ortho when results/cards input available MARCELO v CKD, cannot determine chronicity on chart review-stable avoid nephro toxins HFrEF EF 35-40%, stable- i/os daily weights, cont home meds further diagnoses and plan as noted by resident <Tristan Jeong - Last Filed: 10/19/18 12:58> Hospitalist Progress Note - Encounter Date of Encounter: 10/19/18 Time of Encounter: 08:24 - Subjective Interval History: Patient is awake, in bed, comfortable. He denies pain at this time. Doing well since admission. We discussed chemical stress test today for cardiac clearance, he understood the need for procedure and agreed to proceed. He denies chest pain, sob, diaphoresis, fever, chills. Pain is 0/10. - - Exam Vitals: Temp Pulse Resp BP Pulse Ox 98.8 F 69 16 122/77 96 10/19/18 07:00 10/19/18 07:00 10/19/18 07:00 10/19/18 07:00 10/19/18 07:00 Exam: see below - Assessment and Plan (1) Fracture of right hip Current Visit: Yes Status: Acute Assessment and Plan: Pt is stable, denies pain. XR demonstrates non-displaced right hip fx. Surgery scheduled for today at 6pm. Will need pre-op cardiac clearance for complaints of SOB w/exertion. CXR negative. - Continue bed rest, fall precautions. - NPO. - Pre-op Lexiscan myoview per cards recs. - Tylenol PRN for pain. (2) Vasovagal syncope Current Visit: Yes Status: Acute (3) Pre-operative cardiovascular examination, high risk surgery Current Visit: Yes Status: Acute Assessment and Plan: Pt is comfortable, denies cp, sob. Negative cardiac workup since admission. History of 3 vessel CABG. Last echo w/EF of 35-40%. Cardiology consulted for non-urgent pre-op clearance, appreciate there assistance. - Lexiscan myoview stress test for pre-op cardiac clearance. - Repeat echo revealed no change in LVEF of 35-40%. Moderate LV systolic dysfunction. - RCRI=2, Class 3 risk. 10.1% risk for 30 day post op cardiac event. - BNP 302. Will require post operative EKG, troponins. (4) Heart failure with reduced ejection fraction Current Visit: Yes Status: Chronic Assessment and Plan: Pt with a history of HFrEF. Repeat echo revealed EF 35-40%, unchanged from previous. Currently asymptomatic, BNP 302. - Continue home lopressor, lisinopril-HCTZ. - Pre-op BB given. - Repeat echo today, awaiting results. - I and Os daily. - Will require post-op EKG, troponins secondary to BNP >92. (5) History of three vessel coronary artery bypass Current Visit: Yes Status: Chronic Assessment and Plan: Cardiology consulted for pre-op clearance. - Continue atorvastatin, ASA. (6) CAD (coronary artery disease) Current Visit: Yes Status: Chronic Assessment and Plan: Asymptomatic, cardiac w/u negative for acute ischemia to date. Awaiting results of lexiscan myoview stress test. - ASA, atorvastatin. - Post-op ekg, troponins. (7) Type 2 diabetes mellitus Current Visit: Yes Status: Chronic Assessment and Plan: Pt with a history of T2DM w/o complications. BS up from 134 to 153. - Continue sliding scale humalog HS TIDAC. - Accuchecks ACHS. - Currently NPO, monitor for hypoglycemia. (8) Chronic anemia Current Visit: Yes Status: Chronic Assessment and Plan: Patient has a history of chronic, normocytic, asymptomatic anemia. Hbg down from 10.4 to 10.1 today, will obtain daily CBC and continue to monitor. (9) Benign prostate hyperplasia Current Visit: Yes Status: Chronic Assessment and Plan: Patient w/history of BPH with urinary frequency. - Continue home oxybutinin 5 mg BID. - Continue Flomax 0.4 mg daily. (10) Anxiety Current Visit: Yes Status: Chronic Assessment and Plan: Pt with MRDD, anxiety. Pt currently asymptomatic, at baseline. - Continue home Vistaril 25mg PO Q8H PRN. - Monitor for mental status changes. DVT Prophylaxis: pneumatic compression - Time Spent with Patient Total time spent is greater than 50% in coordination of care (as documented) at patient's floor/unit and/or counseling patient: Plan of Care Discussed with: patient Internal Medicine: Result - Labs CBC & Chem 7: 10/19/18 01:38 10/19/18 01:38 Labs: Short CBC 10/18/18 10/19/18 Range/Units 14:00 01:38 WBC 6.9 6.7 (4.3-11.1) K/mcL Hgb 10.4 L 10.1 L (12.9-16.9) g/dL Hct 30.5 L 30.5 L (37.5-50.1) % Plt Count 140 139 L (140-400) K/mcL Neutrophils # 4.4 3.2 (1.6-8.9) K/mcL BMP 10/18/18 10/19/18 14:00 01:38 Sodium 135 L 134 L Potassium 3.8 4.0 Chloride 100 101 Carbon Dioxide 26 23 BUN 16 17 Creatinine 1.49 H 1.38 H Glucose 134 H 153 H Calcium 9.2 8.8 Liver Function 10/18/18 Range/Units 14:00 Total Bilirubin 0.7 (0.3-1.0) mg/dL AST 15 (13-39) Units/L ALT 14 (7-52) Units/L Alkaline Phosphatase 81 (34-104) Units/L Albumin 4.3 (3.5-5.7) g/dL - ABG Interpretation ABG results: PT/INR, D-dimer PT 13.0 Seconds (9.4-12.1) H 10/18/18 14:00 - Impressions Impressions Cervical Spine CT 10/18/18 14:28 IMPRESSION: CT head: No evidence for acute intracranial pathology. Findings compatible with age related atrophy and likely chronic small vessel ischemic change. CT cervical spine: No acute abnormality of the cervical spine. Multilevel degenerative changes. D/ / 10/18/2018 15:25:34 Norm Coronel MD / zulema Interpreting Provider: Norm Coronel MD Head CT 10/18/18 14:28 IMPRESSION: CT head: No evidence for acute intracranial pathology. Findings compatible with age related atrophy and likely chronic small vessel ischemic change. CT cervical spine: No acute abnormality of the cervical spine. Multilevel degenerative changes. D/ / 10/18/2018 15:25:34 Norm Coronel MD / zulema Interpreting Provider: Norm Coronel MD <Tristan Jeong - Last Filed: 10/19/18 12:58> (1) Fracture of right hip Qualifiers: Encounter type: initial encounter Fracture type: closed Qualified Code(s): S72.001A - Fracture of unspecified part of neck of right femur, initial encounter for closed fracture (4) Heart failure with reduced ejection fraction Qualifiers: Heart failure chronicity: chronic Qualified Code(s): I50.22 - Chronic systolic (congestive) heart failure (6) CAD (coronary artery disease) Qualifiers: Coronary Disease-Associated Artery/Lesion type: [place] artery [place] vs. transplanted heart: [place] heart Associated angina: without angina Qualified Code(s): I25.10 - Atherosclerotic heart disease of [place] coronary artery without angina pectoris (7) Type 2 diabetes mellitus Qualifiers: Diabetes mellitus shelter insulin use: without shelter use Diabetes mellitus complication status: without complication Qualified Code(s): E11.9 - Type 2 diabetes mellitus without complications (9) Benign prostate hyperplasia Qualifiers: Lower urinary tract symptom presence: symptoms present Lower urinary tract symptom detail: urinary frequency Qualified Code(s): N40.1 - Benign prostatic hyperplasia with lower urinary tract symptoms; R35.0 - Frequency of micturition
[2018-10-19] MEDS ORDERED: hydroCHLOROthiazide 25 MG TABLET PO SCH (09:00)
[2018-10-19] MEDS ORDERED: Lisinopril 20 MG TABLET PO SCH (09:00)
[2018-10-19] MEDS ORDERED: BuPROPion XL (24 HR) 150 MG TABLET PO SCH (09:00)
[2018-10-19] MEDS ORDERED: Aspirin 81 MG TAB.CHEW PO SCH (09:00)
[2018-10-19] MEDS ORDERED: Regadenoson 0.4 MG/5 ML SYRINGE IVP ONE (09:34)
--- NOTE | 2018-10-19 10:31 | Cardiology Consult Note ---
<Elisabeth Carrillo - Last Filed: 10/19/18 13:38> Date of Encounter: 10/19/18 Time of Encounter: 10:29 Assessment and Plan (1) Pre-operative cardiovascular examination, high risk surgery Current Visit: Yes Status: Acute Patient is due for repair of right hip fracture and has PMH of CABG x3, CAD, HTN, HFrEF, and DM. -RCRI was 2 with points for heart failure and ischemic heart disease. This puts him at Class III risk. -BNP was >92, at 302. -Echocardiogram showed LVEF 35-40%, normal LV size and thickness. There was moderate segmental LV systolic dysfunction and diastolic dysfunction, atypical septal motion likely d/t post-op status, mild MR, mild pulmonary HTN. -Nuclear stress test results are pending -Recommendations for surgery when results have returned. Discussion w patient/family: The assessment and plan as outlined above was discussed with the patient and/or family members who expressed understanding and agreement. All questions were answered. Thank you for involving us in the care of your patient. Please call with any questions. History of Present Illness Consult date: 10/19/18 Requesting physician: Vannesa Goldberg Consult reason: pre-op risk assessment, CAD s/p CABG, HFrEF, exertional dyspnea Chief complaint: hip fracture History of present illness: Mr. Almazan is a 73 year old male presenting for recent right hip fracture after syncope with fall. He is a resident at [facility] in [place] and is MRDD. PMH is remarkable for CAD s/p CABG x3, HTN, HLD, NIDDM. History of inciting event is unclear due to patient mental status. HPI is from patient and chart review. Around 1745 on 10/17, he was in the restroom after having had a bowel movement after a period fo constipation for some days. He bent over afterward and felt dizzy, then fell over and hit his head on the wall. He did not lose consciousness, but felt very anxious afterward. The fall was unwitnessed by nursing facility staff. Patient reported to staff at that time that he had slid off the toilet and hit back of head. Nursing staff helped him into a wheelchair. He was assessed and admitted only mild right knee pain. Later, when back in room, he became unable to stand. Orthopedics was called. Neurochecks throughout the night were all negative. Dr. Collier saw him for right femur fracture. XR of right hip showed nondisplaced stress fracture of right femoral neck with sclerosis along the medial margin of right femoral neck and trabecular thickening which suggested chronic stress reaction. There was a discrete fracture line which extended through right femoral neck. He was admitted directly into [facility] by Dr. Collier. Today, he feels better and admits only to pain in right leg. He also admits to exertional dyspnea which requires him to stop walking and rest in order to recover. Sometimes, his feet turn blue, he thinks, and his legs also swell. He denies chest pain, headache, abdominal pain, nausea, fatigue, and paresthesias. Cardiology has been consulted due to pre-op clearance for hip fracture repair, as well as exertional dyspnea in context of s/p CABG x3. Past Med Surg Social Fam HX - Past Medical History Medical history: diabetes, hyperlipidemia, hypertension, myocardial infarction Additional medical history: BPH Psychiatric history: no psych history - Past Surgical History Surgical History: cholecystectomy, coronary bypass (CABG), herniorrhaphy - Social History Smoking Status: Former smoker Smokeless Tobacco Status: No Alcohol use: none Drug use: none, other Medications and Allergies Aspirin [Lo-Dose Aspirin EC] 81 mg PO 0700 01/17/17 [History] Atorvastatin [Lipitor] 40 mg PO 2200 01/17/17 [History] Etanercept [Enbrel] 50 mg SQ MOTH 01/17/17 [History] Sondheimer-3/Dha/Epa/Fish Oil [Fish Oil 1,000 mg Softgel] 2,000 mg PO 0700,1700 01/17/17 [History] Tamsulosin [Flomax] 0.4 mg PO 0700 01/17/17 [History] metFORMIN [Glucophage] 500 mg PO 0700,1700 01/17/17 [History] Metoprolol [Lopressor] 12.5 mg PO 0700,1700 08/30/17 [History] Bupropion HCl [Wellbutrin Xl] 300 mg PO 0700 10/18/18 [History] Docusate [Colace] 100 mg PO 0700 10/18/18 [History] Ibuprofen [Ibu] 400 mg PO 2200 PRN 10/18/18 [History] LORazepam [Ativan] 1 mg PO TID PRN 10/18/18 [History] Lisinopril/Hydrochlorothiazide [Lisinopril-Hctz 20-25 mg Tab] 1 each PO 0700,1700 10/18/18 [History] Oxybutynin [Ditropan] 10 mg PO 0700,1700 10/18/18 [History] hydrOXYzine HCl [Hydroxyzine HCl] 25 mg PO 0700,1500,2300 PRN 10/18/18 [History] Allergy/AdvReac Type Severity Reaction Status Date / Time No Known Allergies Allergy Verified 08/30/17 13:05 All Systems Review: The remainder of the systems were reviewed and are negative - Constitutional Constitutional: no fatigue, no headache(s), no weakness - EENT Eyes: blurred vision Nose, mouth and throat: dysphagia - Cardiovascular Cardiovascular: dyspnea on exertion, leg edema, syncope, no chest pain at rest, no chest pain with exertion, no dyspnea at rest - Respiratory Respiratory: dyspnea, no cough - Gastrointestinal Gastrointestinal: constipation, dysphagia, no abdominal pain, no diarrhea, no nausea - Genitourinary Genitourinary: no dysuria - Musculoskeletal Musculoskeletal: other (right hip pain) - Integumentary Integumentary: no unusual bruising - Neurological Neurological: no dizziness, no loss of vision, no numbness, no tingling - Psychiatric Psychiatric: no anxiety, no depression - Hematological/Lymphatic Hematologic/Lymphatic: no easy bleeding, no easy bruising Physical Examination Vital Signs, Last 4 Hours Temp Pulse Resp BP Pulse Ox 10/19/18 07:00 98.8 F 69 16 122/77 96 Other: GENERAL: pleasant, cooperative. Ability to answer questions fully is somewhat limited. EYES: clear sclerae HENT: atraumatic, normocephalic. Sandip mucosa. NECK: supple. No carotid bruits heard. CV: regular rate and rhythm, no murmurs RESPIRATORY/CHEST: clear to auscultation bilaterally, no wheezes, rhonchi, or rales. Nontender to palpation ABDOMEN: soft, nontender, nondistended. Normal bowel sounds. SKIN: well-healed midline scar over chest EXTREMITIES: acyanotic, nonedematous, peripheral pulses 2+/4. Right leg mildly externally rotated. Results 10/19/18 01:38 10/19/18 01:38 Lab Results 10/18/18 10/18/18 10/18/18 14:00 14:00 14:00 WBC 6.9 Hgb 10.4 L Hct 30.5 L Plt Count 140 INR 1.1 Sodium 135 L Potassium 3.8 Chloride 100 Carbon Dioxide 26 BUN 16 Creatinine 1.49 H Glucose 134 H Calcium 9.2 Magnesium Total Bilirubin 0.7 AST 15 ALT 14 Alkaline Phosphatase 81 B-Natriuretic Peptide 10/18/18 10/18/18 10/19/18 14:00 14:00 01:38 WBC 6.7 Hgb 10.1 L Hct 30.5 L Plt Count 139 L INR Sodium Potassium Chloride Carbon Dioxide BUN Creatinine Glucose Calcium Magnesium 1.6 Total Bilirubin AST ALT Alkaline Phosphatase B-Natriuretic Peptide 302 H 10/19/18 01:38 WBC Hgb Hct Plt Count INR Sodium 134 L Potassium 4.0 Chloride 101 Carbon Dioxide 23 BUN 17 Creatinine 1.38 H Glucose 153 H Calcium 8.8 Magnesium Total Bilirubin AST ALT Alkaline Phosphatase B-Natriuretic Peptide Consult Discharge Plan - Plan Referrals: Michele Armando MD [Primary Care Provider] - <Jessica Vargas - Last Filed: 10/19/18 15:03> Date of Encounter: 10/19/18 - Attending Attestation I examined this patient and my medical decision-making was reviewed with the Re sident Physician. I agree with the documented findings, disposition and treatment plan as described except to the extent set forth below. 73-year-old male poor historian with MR presents after a hip fracture last echocardiogram 2016 showed ejection fraction 35-40% status post CABG 3. Patient has multiple cardiac risk factors including diabetes hypertension, hyperlipidemia. In setting of patient being poor historian and 8 accurate of capacities difficult to obtain, we will proceed with risk stratification with a chemical stress test and echocardiogram. Further recommendations pending results of testing Assessment and Plan Discussion w patient/family: The assessment and plan as outlined above was discussed with the patient and/or family members who expressed understanding and agreement. All questions were answered. Thank you for involving us in the care of your patient. Please call with any questions. History of Present Illness History of present illness: Mr. Almazan is a 73 year old male All Systems Review: The remainder of the systems were reviewed and are negative Results 10/19/18 01:38 10/19/18 01:38 Lab Results 10/18/18 10/19/18 10/19/18 14:00 01:38 01:38 WBC 6.7 Hgb 10.1 L Hct 30.5 L Plt Count 139 L Sodium 134 L Potassium 4.0 Chloride 101 Carbon Dioxide 23 BUN 17 Creatinine 1.38 H Glucose 153 H Calcium 8.8 B-Natriuretic Peptide 302 H
[2018-10-19] MEDS ORDERED: *HR* HYDROmorphone (PF) 1 MG/ML SYRINGE IVP PRN (17:59)
[2018-10-19] MEDS ORDERED: Ondansetron 4 MG/2 ML VIAL IVP ONE (17:59)
[2018-10-19] MEDS ORDERED: Lidocaine -MPF 2% 2 ML VIAL ONE (18:00)
[2018-10-19] MEDS ORDERED: *HR* Propofol 200 MG/20 ML VIAL IVP ONE (18:00)
[2018-10-19] MEDS ORDERED: Lidocaine -MPF 4% 5 ML AMPUL ONE (18:00)
[2018-10-19] MEDS ORDERED: *HR* FentaNYL (PF) 100 MCG/2 ML VIAL ONE (18:00)
[2018-10-19] MEDS ORDERED: *HR* Succinylcholine 200 MG/10 ML VIAL IVP ONE (18:00)
[2018-10-19] MEDS ORDERED: Ondansetron 4 MG/2 ML VIAL ONE (18:00)
[2018-10-19] MEDS ORDERED: Dexamethasone 4 MG/ML VIAL ONE (18:00)
[2018-10-19] MEDS ORDERED: *HR* PHENYLEPHRINE 1,000 MCG/10 ML SYRINGE IVP ONE (19:22)
--- NOTE | 2018-10-19 20:22 | Operative Note ---
Date of procedure: 10/19/18 Pre-op diagnosis: Right hip nondisplaced femoral neck fracture Post-op diagnosis: same Procedure: Right hip pinning Anesthesia: KACEYA Surgeon: Alexis Garvey Was there an surgical assistant certified present: No Estimated blood loss (cc): 10 Specimen: 0 Condition: stable Disposition: PACU Procedure in Detail: The patient received IV antibiotics in the holding area, he was brought to the operating room, a sign in was performed, and he underwent general anesthesia on the hospital bed. The patient was then transferred to the OR fracture table in supine position. The patient was positioned against the groin post, with traction applied to the right lower extremity. The contralateral lower extremity was then placed onto a well-padded leg delcid keeping her hip flexed and abducted. Once the patient was well positioned, the x-ray C-arm was brought in and fluoroscopy shots of the hip were taken, adjusting the lower extremity, making sure we will get a good AP and lateral views. Live fluoroscopy was also checked with the hip show it was stable in the valgus impacted position. The right hip and thigh down to the knee was then prepped and draped in standard technique. A timeout was performed. The guidewire was placed over the hip and it's position was checked under fluoroscopy. The guidewires in place percutaneously through skin and driven from the lateral cortex paralleling the inferior neck and staying central on the AP plane. This was driven up to the head, its position checked on AP and lateral views. A 3 cm longitudinal incisions then made going superior to the guidewire. The depth was measured, next I overdrilled the guidewire and placed a 100 mm long 7.3 mm cannulated screw with short threads. The drill bit initially used was too large but only drilled fdc. Another guidewire was then placed superior and anterior, steps were repeated to place a 90 mm long 7.3 mm screw with long threads. Finally a third guidewire was placed posterior to the second wire, and a 90 mm long 7.3 mm screw with short threads was placed. The initial screws change up to a long threaded screw. Final AP and lateral shots were taken and saved, showing good screw placement. The wound was irrigated normal saline, the deep fascia was closed with a 0 Vi cryl suture, the subcutaneous tissues closed with 2-0 Vicryl sutures, and skin stapled. Sterile dressings were applied. The patient was then transferred to hospital bed where he was extubated and ta silva to recovery room in stable condition.
--- NOTE | 2018-10-19 20:52 | Anesthesia Evaluation Post Op ---
Date of Encounter: 10/19/18 Time of Encounter: 20:52 - Vital Signs Vital Signs: Vital Signs/O2 Sat, Most Current Temp Pulse Resp BP Pulse Ox 99.5 F 74 12 154/70 96 10/19/18 20:25 10/19/18 20:45 10/19/18 20:45 10/19/18 20:45 10/19/18 20:45 - Lungs Lungs: Clear Ascult./Percussion - Airway Airway: Non-obstructed - Cardiovascular Regular Rate - Mental Status Mental Status: Alert & Oriented, Answers Appropriately - Pain Pain Scale: 0 Pain Scale used: Numeric (1 - 10) - Nausea Vomiting Nausea Vomiting: Not Present - Hydration Hydration: Ice chips, Has not voided - Discharge PostOp Status: Transfer Patient to floor
[2018-10-19] MEDS ORDERED: Ringers Solution, Lactated 1,000 ML IVC SCH (20:56)
[2018-10-19] MEDS ORDERED: *HR* Dextrose 50 % in Water (Syg) 50 ML SYRINGE IVP PRN (20:56)
[2018-10-19] MEDS ORDERED: Dextrose Gel 15 GM/37.5 ML TUBE PO PRN ×2 (20:56)
[2018-10-19] MEDS ORDERED: hydrOXYzine pamoate 25 MG CAPSULE PO PRN (20:56)
[2018-10-19] MEDS ORDERED: *HR* LORazepam 1 MG TABLET PO PRN (20:56)
[2018-10-19] MEDS ORDERED: D5% in Water 1,000 ML IVC PRN (20:56)
[2018-10-20 07:13] LABS: Basophils % 0.2 %; Eosinophils % 0.7 %; Hematocrit 32.5 % (37.5-50.1); Hemoglobin 10.7 g/dL (12.9-16.9); Immature Granulocytes % 0.5 % (0-4); Lymphocytes # 0.8 K/mcL (0.6-4.6); Lymphocytes % 12.4 %; Mean Corpuscular HGB Conc 32.9 g/dL (31.6-35.5); Mean Corpuscular Hemoglobin 28.8 pg (28.0-33.3); Mean Corpuscular Volume 87.6 fL (83.0-100.0); Mean Platelet Volume 9.3 fL (9.4-12.4); Monocytes # 0.6 K/mcL (0.0-1.3); Monocytes % 10.3 %; Neutrophils # 4.6 K/mcL (1.6-8.9); Platelet Count 136 K/mcL (140-400); Red Blood Count 3.71 M/mcL (4.19-5.50); Red Cell Distribution Width 12.6 % (11.5-14.5); Segmented Neutrophils % 75.9 %; White Blood Count 6.1 K/mcL (4.3-11.1)
[2018-10-20 07:32] LABS: BUN/Creatinine Ratio 16 (6-26); Blood Urea Nitrogen 23 mg/dL (8-23); Calcium 9.1 mg/dL (8.6-10.3); Carbon Dioxide 23 mEq/L (23-29); Chloride 101 mEq/L (98-107); Glucose 153 mg/dL (70-105); Osmolality,Calculated 285 (280-300); Potassium 4.5 mEq/L (3.5-5.1); Sodium 134 mEq/L (136-145); eGFR For African Americans > 60 (> 60); eGFR For Non-African Americans 50 (> 60)
--- NOTE | 2018-10-20 07:51 | Internal Med Progress Note ---
<Vannesa Goldberg - Last Filed: 10/20/18 11:34> Hospitalist Progress Note - Encounter Date of Encounter: 10/20/18 - Exam Vitals: Temp Pulse Resp BP Pulse Ox 98.2 F 84 16 159/77 96 10/20/18 09:58 10/20/18 09:58 10/20/18 09:58 10/20/18 09:58 10/20/18 09:58 - Time Spent with Patient Total time spent is greater than 50% in coordination of care (as documented) at patient's floor/unit and/or counseling patient: Internal Medicine: Result - Labs CBC & Chem 7: 10/20/18 06:32 10/20/18 06:32 Labs: Short CBC 10/20/18 Range/Units 06:32 WBC 6.1 (4.3-11.1) K/mcL Hgb 10.7 L (12.9-16.9) g/dL Hct 32.5 L (37.5-50.1) % Plt Count 136 L (140-400) K/mcL Neutrophils # 4.6 (1.6-8.9) K/mcL BMP 10/20/18 06:32 Sodium 134 L Potassium 4.5 Chloride 101 Carbon Dioxide 23 BUN 23 Creatinine 1.40 H Glucose 153 H Calcium 9.1 - ABG Interpretation ABG results: PT/INR, D-dimer PT 13.0 Seconds (9.4-12.1) H 10/18/18 14:00 - Impressions Impressions Fluoroscopy 10/19/18 19:18 IMPRESSION: Intraoperative fluoroscopy for internal fixation of the right femoral neck. COMPARISON: 10/18/2018 D/ / Gavino Ye MD / Gavino Ye MD Interpreting Provider: Gavino Ye MD Consult Discharge Plan - Plan Referrals: Michele Armando MD [Primary Care Provider] - - Attending Attestation I examined this patient and my medical decision-making was reviewed with the Resident Physician Dr Leonard. I agree with the documented findings, disposition and treatment plan as described except to the extent set forth below. Mr Almazan is admitted for hip fracture requiring surgical intervention awake, pleasant, no leg pain, denies cp, sob gen- alert, awake,appears stated age cv- reg rate and rhythm, normal s1,s2, no pitting le edema lungs- ctabl, normal resp effort on room air neuro- AAOxperson, place, situation R femoral neck fracture s/p R hip pin 10/19, post op care as per ortho Acute urinary retention post op- maintain mancia cath given his sig hx of BPH, suspect will undergo voiding trial at snf post dc, cont home meds HFrEF EF 35-40%, stable- i/os daily weights, cont home meds further diagnoses and plan as noted by resident dispo will be back to snf when medically cleared, possibly tomorrow <Nick Leonard - Last Filed: 10/20/18 16:47> Hospitalist Progress Note - Encounter Date of Encounter: 10/20/18 Time of Encounter: 07:51 - Subjective Interval History: Patient had right hip pinning yesterday without incident. No acute events overnight. Labs and vital stable this morning. Patient has no acute complaints this morning. He was mildly short of breath after rehabilitation but that quickly resolved. - Exam Vitals: Temp Pulse Resp BP Pulse Ox 98.5 F 89 18 151/86 95 10/20/18 06:57 10/20/18 06:57 10/20/18 06:57 10/20/18 06:57 10/20/18 06:57 Exam: Patient alert and oriented, in no acute distress Heart in regular rate and rhythm without murmur or gallop auscultated Lungs clear to auscultation bilaterally Abdomen soft and nontender with normal bowel sounds noted Motor and sensation intact in bilateral distal lower extremities Skin warm and dry, bandage on right lateral thigh clean and dry and intact - Assessment and Plan (1) Fracture of right hip Current Visit: Yes Status: Acute Assessment and Plan: Patient presented with fracture of right hip secondary to vasovagal syncope Preoperative cardiac clearance was completed yesterday with stress test Right hip pinning completed yesterday without incident Patient up and moving with rehabilitation today He is still 2 person max assist, we will continue to work with rehabilitation Anticipate discharge in next several days if medical condition remained stable (2) Heart failure with reduced ejection fraction Current Visit: Yes Status: Chronic Assessment and Plan: History of heart failure with reduced ejection fraction No symptoms of acute exacerbation identified here Continue home Lopressor, lisinopril, hydrochlorothiazide (3) Chronic anemia Current Visit: Yes Status: Chronic Assessment and Plan: Patient has history of chronic, normocytic, asymptomatic anemia No acute exacerbations here, we will continue to monitor (4) CAD (coronary artery disease) Current Visit: Yes Status: Chronic Assessment and Plan: Patient has history of coronary artery disease status post CABG He was assessed by cardiology for preoperative cardiac clearance Pharmacologic stress test was performed without acute changes We will continue home aspirin and atorvastatin (5) Type 2 diabetes mellitus Current Visit: Yes Status: Chronic Assessment and Plan: Diabetic diet, before meals at bedtime Accu-Cheks, sliding scale insulin (6) Benign prostate hyperplasia Current Visit: Yes Status: Chronic Assessment and Plan: Patient has history of BPH, we will continue home oxybutynin and Flomax Patient was also found to be retaining urine this admission, Mancia catheter is placed (7) Vasovagal syncope Current Visit: Yes Status: Acute (8) Anxiety Current Visit: Yes Status: Chronic Assessment and Plan: Continue home Vistaril DVT Prophylaxis: pneumatic compression - Time Spent with Patient Total time spent is greater than 50% in coordination of care (as documented) at patient's floor/unit and/or counseling patient: Internal Medicine: Result - Labs CBC & Chem 7: 10/20/18 06:32 10/20/18 06:32 Labs: Short CBC 10/20/18 Range/Units 06:32 WBC 6.1 (4.3-11.1) K/mcL Hgb 10.7 L (12.9-16.9) g/dL Hct 32.5 L (37.5-50.1) % Plt Count 136 L (140-400) K/mcL Neutrophils # 4.6 (1.6-8.9) K/mcL BMP 10/20/18 06:32 Sodium 134 L Potassium 4.5 Chloride 101 Carbon Dioxide 23 BUN 23 Creatinine 1.40 H Glucose 153 H Calcium 9.1 - ABG Interpretation ABG results: PT/INR, D-dimer PT 13.0 Seconds (9.4-12.1) H 10/18/18 14:00 - Impressions Impressions Echocardiogram 10/18/18 13:28 Impressions: LVEF 35-40%. Normal LV chamber size, wall thickness. Moderate segmental left ventricular systolic dysfunction. Atypical septal motion consistent with postoperative status. Moderate left ventricular diastolic dysfunction. Normal right ventricular structure and function. Mild mitral regurgitation. Mild pulmonary hypertension. Left Ventricular Wall Motion: Rest Echo Findings The apex, apical inferior, apical septal, mid inferior septal and mid anterior septal choi were hypokinetic. All other wall segments showed normal motion. Findings: Study Quality * Technically sub-optimal due to poor echocardiographic windows. ECG Findings * Normal sinus rhythm. Left Ventricle * LVEF 35-40%. * Normal LV chamber size, wall thickness. * Moderate segmental left ventricular systolic dysfunction. * Moderate left ventricular diastolic dysfunction. Right Ventricle * Normal right ventricular structure and function. Left Atrium * Mildly dilated left atrium. Right Atrium * Mildly dilated right atrium. Interatrial Septum * Interatrial septum not well evaluated. Aortic Valve * Aortic valve not well visualized. * Mildly calcified aortic valve annulus. * No aortic regurgitation. * No aortic stenosis. Mitral Valve * Normal mitral valve structure. * Mild mitral regurgitation. * No mitral stenosis. Tricuspid Valve * Normal tricuspid valve structure and function. * Trace tricuspid regurgitation. * Mild pulmonary hypertension. Pulmonic Valve * Pulmonic valve is not well visualized. * No pulmonic regurgitation. Aorta * Normally sized aortic root. Pericardium * The pericardium appears normal. IVC * The IVC is not well evaluated. Pulmonary Artery * Pulmonary artery not well visualized. Chest X-Ray 10/19/18 07:51 IMPRESSION: 1. No active pulmonary disease. D/ / Shemar Marinelli MD / Shemar Marinelli MD Interpreting Provider: Shemar Marinelli MD Fluoroscopy 10/19/18 19:18 IMPRESSION: Intraoperative fluoroscopy for internal fixation of the right femoral neck. COMPARISON: 10/18/2018 D/ / Gavino Ye MD / Gavino Ye MD Interpreting Provider: Gavino Ye MD <Nick Leonard - Last Filed: 10/20/18 16:47> (1) Fracture of right hip Qualifiers: Encounter type: initial encounter Fracture type: closed Qualified Code(s): S72.001A - Fracture of unspecified part of neck of right femur, initial enc ounter for closed fracture (2) Heart failure with reduced ejection fraction Qualifiers: Heart failure chronicity: chronic Qualified Code(s): I50.22 - Chronic systolic (congestive) heart failure (4) CAD (coronary artery disease) Qualifiers: Coronary Disease-Associated Artery/Lesion type: bypass graft [place] vs. transplanted heart: [place] heart Associated angina: without angina Qualified Code(s): I25.810 - Atherosclerosis of coronary artery bypass graft(s) without angina pectoris (5) Type 2 diabetes mellitus Qualifiers: Diabetes mellitus ferry terminal supervisor insulin use: without ferry terminal supervisor use Diabetes mellitus complication status: without complication Qualified Code(s): E11.9 - Type 2 diabetes mellitus without complications (6) Benign prostate hyperplasia Qualifiers: Lower urinary tract symptom presence: symptoms present Lower urinary tract symptom detail: urinary frequency Qualified Code(s): N40.1 - Benign prostatic hyperplasia with lower urinary tract symptoms; R35.0 - Frequency of micturition
[2018-10-20] MEDS: BuPROPion XL (24 HR) 150 MG TABLET PO SCH (07:54)
[2018-10-20] MEDS: Aspirin 81 MG TAB.CHEW PO SCH (07:55)
[2018-10-20] MEDS: Lisinopril 20 MG TABLET PO SCH (07:55)
[2018-10-20] MEDS: hydroCHLOROthiazide 25 MG TABLET PO SCH (07:55)
[2018-10-20] MEDS: Insulin LISPRO 300 UNITS/3 ML VIAL SQ SCH ×4 (07:56→21:25)
[2018-10-20] MEDS: Ondansetron 4 MG/2 ML VIAL IVP PRN ×2 (14:54→21:20)
--- NOTE | 2018-10-20 16:02 | Orthopedics Progress Note ---
Date of Encounter: 10/20/18 Time of Encounter: 15:59 Subjective Principal diagnosis: R hip fx Interval history: Patient is comfortable with minimal pain Right hip: Dressings are clean dry intact Bilateral calves are soft and nontender Grossly neurovascular intact distally Assessment: Postoperative #1 status post right hip pinning, stable Plan: Discharge back to senior living tomorrow Patient is toe-touch weightbearing to the right lower extremity Continue DVT prophylaxis, use Lovenox 30 mg subcutaneous every 12 hrs 2 weeks, followed by ASA 81 mg po QD x 4 wks Follow-up in office with Rhonda Wiley PA-C in 2 weeks Objective Vital signs: Vital Signs Temp Pulse Resp BP Pulse Ox 10/20/18 14:48 98.2 F 74 16 164/79 95 10/20/18 11:42 98.6 F 66 16 167/72 95 10/20/18 09:58 98.2 F 84 16 159/77 96 10/20/18 06:57 98.5 F 89 18 151/86 95 10/20/18 04:40 98.1 F 80 19 156/79 94 10/20/18 01:33 158/80 10/20/18 00:52 98.3 F 69 16 186/82 98 10/19/18 23:03 98.6 F 75 16 148/74 98 10/19/18 21:50 97.9 F 72 14 154/74 96 10/19/18 21:24 98.2 F 76 14 161/96 98 10/19/18 20:55 98.2 F 76 14 161/69 98 10/19/18 20:45 74 12 154/70 96 10/19/18 20:35 74 12 157/81 98 10/19/18 20:25 99.5 F 84 18 158/76 95 10/19/18 16:31 99.0 F 62 16 134/80 99 Intake and Output 10/19/18 10/20/18 10/20/18 23:59 07:59 15:59 Intake Total 100 / 100 0 / 100 Output Total 2500 / 3225 725 / 3225 Balance -2400 / -3125 -725 / -3125 Intake: IV Fluids 100 / 100 Ancef 2,000 MG In 0.9 % Sodium 100 / 100 Chloride 100 ML @ 200 mls/hr IVPB Q8HR DEX Rx#:[id number] Oral 0 / 0 Output: Urine 0 / 0 Estimated Blood Loss Catheter 2500 / 3225 725 / 3225 Other: Meal Breakfast Percent of Meal Consumed 0% Blood Glucose* 148 157 118 - Labs CBC & BMP: 10/20/18 06:32 10/20/18 06:32 Labs: Abnormal lab results RBC 3.71 M/mcL (4.19-5.50) L 10/20/18 06:32 Hgb 10.7 g/dL (12.9-16.9) L 10/20/18 06:32 Hct 32.5 % (37.5-50.1) L 10/20/18 06:32 Plt Count 136 K/mcL (140-400) L 10/20/18 06:32 MPV 9.3 fL (9.4-12.4) L 10/20/18 06:32 Eosinophils # 0.7 K/mcL (0.0-0.6) H 10/19/18 01:38 PT 13.0 Seconds (9.4-12.1) H 10/18/18 14:00 Sodium 134 mEq/L (136-145) L 10/20/18 06:32 Creatinine 1.40 mg/dL (0.70-1.30) H 10/20/18 06:32 Est GFR ( Amer) 56 (> 60) L 10/18/18 14:00 Est GFR (Non-Af Amer) 50 (> 60) L 10/20/18 06:32 Glucose 153 mg/dL (70-105) H 10/20/18 06:32 POC Glucose 157 mg/dL (70-99) H 10/20/18 06:15 B-Natriuretic Peptide 302 pg/mL (Less than 100) H 10/18/18 14:00 Consult Discharge Plan - Plan Referrals: Michele Armando MD [Primary Care Provider] -
[2018-10-20] MEDS: *HR* Enoxaparin 30 MG/0.3 ML SYRINGE SQ SCH (21:25)
[2018-10-21 05:40] LABS: Basophils % 0.1 %; Hematocrit 35.1 % (37.5-50.1); Immature Granulocytes % 0.4 % (0-4); Lymphocytes # 0.6 K/mcL (0.6-4.6); Lymphocytes % 7.5 %; Mean Corpuscular HGB Conc 35.3 g/dL (31.6-35.5); Mean Corpuscular Hemoglobin 28.9 pg (28.0-33.3); Mean Corpuscular Volume 81.8 fL (83.0-100.0); Mean Platelet Volume 9.7 fL (9.4-12.4); Monocytes % 12.8 %; Neutrophils # 6.4 K/mcL (1.6-8.9); Platelet Count 146 K/mcL (140-400); Red Blood Count 4.29 M/mcL (4.19-5.50); Red Cell Distribution Width 12.9 % (11.5-14.5); Segmented Neutrophils % 79.2 %
[2018-10-21 05:43] LABS: Hemoglobin 12.4 g/dL (12.9-16.9)
[2018-10-21 05:47] LABS: BUN/Creatinine Ratio 25 (6-26); Blood Urea Nitrogen 33 mg/dL (8-23); Calcium 9.1 mg/dL (8.6-10.3); Carbon Dioxide 22 mEq/L (23-29); Chloride 98 mEq/L (98-107); Glucose 235 mg/dL (70-105); Osmolality,Calculated 291 (280-300); Potassium 4.2 mEq/L (3.5-5.1); Sodium 133 mEq/L (136-145); eGFR For African Americans > 60 (> 60); eGFR For Non-African Americans 52 (> 60)
[2018-10-21] MEDS: *HR* Enoxaparin 30 MG/0.3 ML SYRINGE SQ SCH ×2 (06:13→16:58)
[2018-10-21] MEDS: Acetaminophen 325 MG TABLET PO PRN (06:13)
[2018-10-21] MEDS: Aspirin 81 MG TAB.CHEW PO SCH (07:37)
[2018-10-21] MEDS: hydroCHLOROthiazide 25 MG TABLET PO SCH (07:37)
[2018-10-21] MEDS: BuPROPion XL (24 HR) 150 MG TABLET PO SCH (07:38)
[2018-10-21] MEDS: Insulin LISPRO 300 UNITS/3 ML VIAL SQ SCH ×4 (07:38→23:11)
[2018-10-21] MEDS: Lisinopril 20 MG TABLET PO SCH (07:38)
[2018-10-21] MEDS ORDERED: Furosemide 40 MG/4 ML VIAL IVP ONE (07:50)
--- NOTE | 2018-10-21 08:33 | Internal Med Progress Note ---
<Vannesa Goldberg - Last Filed: 10/21/18 10:01> Hospitalist Progress Note - Encounter Date of Encounter: 10/21/18 - Exam Vitals: Temp Pulse Resp BP Pulse Ox 98.8 F 94 18 157/83 90 10/21/18 06:27 10/21/18 06:27 10/21/18 06:27 10/21/18 06:27 10/21/18 09:01 - Time Spent with Patient Total time spent is greater than 50% in coordination of care (as documented) at patient's floor/unit and/or counseling patient: Internal Medicine: Result - Labs CBC & Chem 7: 10/21/18 05:22 10/21/18 05:22 Labs: Short CBC 10/21/18 Range/Units 05:22 WBC 8.0 (4.3-11.1) K/mcL Hgb 12.4 L D (12.9-16.9) g/dL Hct 35.1 L (37.5-50.1) % Plt Count 146 (140-400) K/mcL Neutrophils # 6.4 (1.6-8.9) K/mcL BMP 10/21/18 05:22 Sodium 133 L Potassium 4.2 Chloride 98 Carbon Dioxide 22 L BUN 33 H Creatinine 1.34 H Glucose 235 H Calcium 9.1 - ABG Interpretation ABG results: PT/INR, D-dimer PT 13.0 Seconds (9.4-12.1) H 10/18/18 14:00 - Impressions Impressions Chest X-Ray 10/20/18 22:16 IMPRESSION: Clear lungs. D/ / Gavino Ye MD / Gavino Ye MD Interpreting Provider: Gavino Ye MD Consult Discharge Plan - Plan Additional Instructions: Patient is toe-touch weight bearing to the right lower extremity Continue DVT prophylaxis, use Lovenox 30 mg subcutaneous every 12 hrs 2 weeks, followed by ASA 81 mg po QD x 4 wks Follow-up in office with Rhonda Wiley PA-C in 2 weeks Referrals: Michele Armando MD [Primary Care Provider] - - Attending Attestation I examined this patient and my medical decision-making was reviewed with the Resident Physician Dr Leonard. I agree with the documented findings, disposition and treatment plan as described except to the extent set forth below. Mr Almazan is admitted for hip fracture requiring surgical intervention awake, feels unwell. He denies sob and he is breathing comfortably on my exam on o2 nc. He states stomach doesn't feel well, no pain + nausea, he states he is having diarrhea (though none reported by nursing or documented). Given his MRDD his hpi and ros are limited. he is denying leg pain, chest pain or pressure. gen- alert, awake,appears stated age, fatigued appearing cv- reg rate and rhythm, normal s1,s2, no le edema lungs- ctabl in ant/lat remy without rhonchi, wheezing or crackles on my exam, normal resp effort on o2 nc neuro- AAOxperson, situation R femoral neck fracture s/p R hip pin 10/19, post op care as per ortho HFrEF EF 35-40%, net neg this admission- appears euvolemic, stop post op IVFs Acute Hypoxic resp failure suspect aspiration s/p emesis episode -o2 nc, iv lasix, iv zosyn, nebs, cont to monitor, repeat cxr in am Emesis w/o abd pain not on any new meds or pain meds, etiology unknown, low suspicion related to mild na drop as no cognitive changes, he is reporting diarrhea though none documented- prn anti emetic, check kub, monitor all stools further diagnoses and plan as noted by resident dispo will be back to snf when medically cleared <Nick Leonard - Last Filed: 10/21/18 16:59> Hospitalist Progress Note - Encounter Date of Encounter: 10/21/18 Time of Encounter: 08:32 - Subjective Interval History: Patient had several episodes of emesis last night with concern for aspiration. As of this morning the patient is only mildly nauseated and not vomiting but is showing clinical signs of aspiration. - Exam Vitals: Temp Pulse Resp BP Pulse Ox 98.8 F 94 18 157/83 90 10/21/18 06:27 10/21/18 06:27 10/21/18 06:27 10/21/18 06:27 10/21/18 06:27 Exam: Patient alert and oriented, in no acute distress Heart in regular rate and rhythm without murmur or gallop auscultated On serial examinations patient had rales and rhonchi that cleared with cough as well as clear breath sounds Abdomen soft and nontender with normal bowel sounds noted Motor and sensation intact in bilateral distal lower extremities Skin warm and dry, bandage on right lateral thigh clean and dry and intact - Assessment and Plan (1) Acute respiratory failure with hypoxia Current Visit: Yes Status: Acute Assessment and Plan: Patient had several episodes of emesis overnight concerning for aspiration This morning patient was having dyspnea and hypoxia and required supplemental oxygen This is likely secondary to chemical pneumonitis +/- aspiration pneumonia Zosyn was initiated and IV Lasix was started as well as DuoNeb's Patient's clinical disposition improved over the morning and day with supportive care We will continue to monitor and get chest x-ray in the morning (2) Chemical pneumonitis Current Visit: Yes Status: Acute (3) Fracture of right hip Current Visit: Yes Status: Acute Assessment and Plan: Patient presented with fracture of right hip secondary to vasovagal syncope Preoperative cardiac clearance was completed with stress test Right hip pinning completed without incident Patient up and moving with rehabilitation He is still 2 person max assist, we will continue to work with rehabilitation Discharge was anticipated in next several days, with new aspiration pneumonitis discharge disposition is unclear (4) Heart failure with reduced ejection fraction Current Visit: Yes Status: Chronic Assessment and Plan: History of heart failure with reduced ejection fraction No symptoms of acute exacerbation identified here Continue home Lopressor, lisinopril, hydrochlorothiazide (5) Chronic anemia Current Visit: Yes Status: Chronic Assessment and Plan: Patient has history of chronic, normocytic, asymptomatic anemia No acute exacerbations here, we will continue to monitor (6) CAD (coronary artery disease) Current Visit: Yes Status: Chronic Assessment and Plan: Patient has history of coronary artery disease status post CABG He was assessed by cardiology for preoperative cardiac clearance Pharmacologic stress test was performed without acute changes We will continue home aspirin and atorvastatin (7) Type 2 diabetes mellitus Current Visit: Yes Status: Chronic Assessment and Plan: Diabetic diet, before meals at bedtime Accu-Cheks, sliding scale insulin (8) Benign prostate hyperplasia Current Visit: Yes Status: Chronic Assessment and Plan: Patient has history of BPH, we will continue home oxybutynin and Flomax Patient was also found to be retaining urine this admission, Bueno catheter is placed (9) Vasovagal syncope Current Visit: Yes Status: Acute (10) Anxiety Current Visit: Yes Status: Chronic Assessment and Plan: Continue home Vistaril - Time Spent with Patient Total time spent is greater than 50% in coordination of care (as documented) at patient's floor/unit and/or counseling patient: Internal Medicine: Result - Labs CBC & Chem 7: 10/21/18 05:22 10/21/18 05:22 Labs: Short CBC 10/21/18 Range/Units 05:22 WBC 8.0 (4.3-11.1) K/mcL Hgb 12.4 L D (12.9-16.9) g/dL Hct 35.1 L (37.5-50.1) % Plt Count 146 (140-400) K/mcL Neutrophils # 6.4 (1.6-8.9) K/mcL BMP 10/21/18 05:22 Sodium 133 L Potassium 4.2 Chloride 98 Carbon Dioxide 22 L BUN 33 H Creatinine 1.34 H Glucose 235 H Calcium 9.1 - ABG Interpretation ABG results: PT/INR, D-dimer PT 13.0 Seconds (9.4-12.1) H 10/18/18 14:00 - Impressions Impressions Chest X-Ray 10/20/18 22:16 IMPRESSION: Clear lungs. D/ / Gavino Ye MD / Gavino Ye MD Interpreting Provider: Gavino Ye MD <Nick Leonard - Last Filed: 10/21/18 16:59> (3) Fracture of right hip Qualifiers: Encounter type: initial encounter Fracture type: closed Qualified Code(s): S72.001A - Fracture of unspecified part of neck of right femur, initial encounter for closed fracture (4) Heart failure with reduced ejection fraction Qualifiers: Heart failure chronicity: chronic Qualified Code(s): I50.22 - Chronic systolic (congestive) heart failure (6) CAD (coronary artery disease) Qualifiers: Coronary Disease-Associated Artery/Lesion type: bypass graft [place] vs. transplanted heart: [place] heart Associated angina: without angina Qualified Code(s): I25.810 - Atherosclerosis of coronary artery bypass graft(s) without angina pectoris (7) Type 2 diabetes mellitus Qualifiers: Diabetes mellitus shelter insulin use: without intermediate manager use Diabetes mellitus complication status: without complication Qualified Code(s): E11.9 - Type 2 diabetes mellitus without complications (8) Benign prostate hyperplasia Qualifiers: Lower urinary tract symptom presence: symptoms present Lower urinary tract symptom detail: urinary frequency Qualified Code(s): N40.1 - Benign prostatic hyperplasia with lower urinary tract symptoms; R35.0 - Frequency of micturition
[2018-10-21] MEDS: Piperacillin/Tazobactam 3.375 GM in 0.9 % Sodium Chloride Mini Bag 100 ML IVPB SCH ×3 (08:45→23:11)
[2018-10-21] MEDS: Ipratropium/Albuterol Neb 3 ML IH SCH ×3 (10:50→22:31)
[2018-10-22] MEDS: Ipratropium/Albuterol Neb 3 ML IH SCH ×4 (04:01→21:37)
[2018-10-22 04:04] LABS: Basophils % 0.3 %; Eosinophils # 0.1 K/mcL (0.0-0.6); Eosinophils % 1.4 %; Hematocrit 32.5 % (37.5-50.1); Immature Granulocytes % 0.6 % (0-4); Lymphocytes % 13.4 %; Mean Corpuscular HGB Conc 33.8 g/dL (31.6-35.5); Mean Corpuscular Hemoglobin 28.5 pg (28.0-33.3); Mean Corpuscular Volume 84.2 fL (83.0-100.0); Mean Platelet Volume 10.3 fL (9.4-12.4); Monocytes % 13.4 %; Neutrophils # 4.5 K/mcL (1.6-8.9); Platelet Count 148 K/mcL (140-400); Red Blood Count 3.86 M/mcL (4.19-5.50); Red Cell Distribution Width 13.2 % (11.5-14.5); Segmented Neutrophils % 70.9 %; White Blood Count 6.3 K/mcL (4.3-11.1)
[2018-10-22 04:15] LABS: Calcium 8.2 mg/dL (8.6-10.3); Potassium 3.6 mEq/L (3.5-5.1)
[2018-10-22 04:20] LABS: Lymphocytes # 0.8 K/mcL (0.6-4.6); Monocytes # 0.8 K/mcL (0.0-1.3)
[2018-10-22 05:03] LABS: Platelet Estimate Decreased (Normal)
[2018-10-22] MEDS: *HR* Enoxaparin 30 MG/0.3 ML SYRINGE SQ SCH ×2 (07:40→18:08)
[2018-10-22] MEDS: BuPROPion XL (24 HR) 150 MG TABLET PO SCH (07:55)
[2018-10-22] MEDS: Aspirin 81 MG TAB.CHEW PO SCH (07:56)
[2018-10-22] MEDS: Piperacillin/Tazobactam 3.375 GM in 0.9 % Sodium Chloride Mini Bag 100 ML IVPB SCH (08:02)
[2018-10-22] MEDS: Insulin LISPRO 300 UNITS/3 ML VIAL SQ SCH ×4 (08:11→21:33)
--- NOTE | 2018-10-22 08:11 | Internal Med Progress Note ---
<Tristan Jeong - Last Filed: 10/22/18 09:46> Hospitalist Progress Note - Encounter Date of Encounter: 10/22/18 Time of Encounter: 08:10 - Subjective Interval History: No acute events overnight. S/P right hip pinning. Pt awake, alert, in bed and comfortable. Reports that he has improved significantly over the last 48 hours although he endorses some weakness and fatigue. No significant pain at this time. Breathing stable, no sob, cp, n/v. - Exam Vitals: Temp Pulse Resp BP Pulse Ox 98.6 F 81 18 121/60 94 10/22/18 06:18 10/22/18 06:18 10/22/18 06:18 10/22/18 06:18 10/22/18 06:18 Exam: GA: Patient alert and oriented, in no acute distress. CV: RRR, S1/S2 WNL. No murmurs, rubs, gallops. Lungs: Coarse breath sounds with mild-moderate rales and rhonchi throughout. Cleared with cough as noted with previous exam. Otherwise breath sounds clear. GI: Abdomen soft and nontender, normoactive bowel sounds, no guarding. Neuro: Motor and sensation intact in bilateral distal lower extremities. Ext: No edema, cyanosis, pulses intact and symmetric. Skin: Skin warm and dry, bandage on right lateral thigh clean and dry and intact. - Assessment and Plan (1) Acute respiratory failure with hypoxia Current Visit: Yes Status: Acute Assessment and Plan: Patient with episodes of emesis, hypoxia, and dspynea 2 days ago concerning for aspiration PNA. He improved with supplemental oxygen, IV lasix, Zosyn, Duoneb. Feels well this morning, some weakness and fatigue. No supp o2 requirement at this time. - Repeat CXR today demonstrates right basilar atelectasis which was unseen from prior exam. - We will continue IV antibiotics at this time. (2) Fracture of right hip Current Visit: Yes Status: Acute Assessment and Plan: S/P right hip pinning for non-displaced right femoral neck fracture. Completed pre-op cardiac clearance secondary to occasional dyspnea on exertion. Stress test was negative. Doing well with rehab, still endorses some weakness. - 2 person max assist, continue to work with rehabilitation - Improvement in aspiration pneumonia symptoms. Will continue to monitor. - Fall precautions. (3) Heart failure with reduced ejection fraction Current Visit: Yes Status: Chronic Assessment and Plan: History of HFrEF. Echo 10/18/18 demonstrates EF of 35-40% which is unchanged from 2012 exam. No symptoms of acute exacerbation. - Continue home Lopressor, lisinopril, hydrochlorothiazide (4) CAD (coronary artery disease) Current Visit: Yes Status: Chronic Assessment and Plan: Patient has history of coronary artery disease s/p CABG. Pre-op cardiology clearance w/negative pharmacologic stress test. - We will continue home aspirin and atorvastatin (5) Type 2 diabetes mellitus Current Visit: Yes Status: Chronic Assessment and Plan: Diabetic diet, before meals at bedtime Accu-Cheks, sliding scale insulin (6) Chronic anemia Current Visit: Yes Status: Chronic (7) Benign prostate hyperplasia Current Visit: Yes Status: Chronic Assessment and Plan: Patient has history of BPH, we will continue home oxybutynin and Flomax. Pt no longer retaining urine. - Bueno catheter removed at this time. - I and Os. (8) Anxiety Current Visit: Yes Status: Chronic Assessment and Plan: Asymptomatic, no complaints. Will continue home Vistaril. DVT Prophylaxis: pneumatic compression - Time Spent with Patient Total time spent is greater than 50% in coordination of care (as documented) at patient's floor/unit and/or counseling patient: Plan of Care Discussed with: patient Internal Medicine: Result - Labs CBC & Chem 7: 10/22/18 03:22 10/22/18 03:22 Labs: Short CBC 10/22/18 Range/Units 03:22 WBC 6.3 (4.3-11.1) K/mcL Hgb 11.0 L (12.9-16.9) g/dL Hct 32.5 L (37.5-50.1) % Plt Count 148 (140-400) K/mcL Neutrophils # 4.5 (1.6-8.9) K/mcL BMP 10/22/18 03:22 Sodium 136 Potassium 3.6 Chloride 99 Carbon Dioxide 22 L BUN 54 H Creatinine 1.89 H Glucose 164 H Calcium 8.2 L - ABG Interpretation ABG results: PT/INR, D-dimer PT 13.0 Seconds (9.4-12.1) H 10/18/18 14:00 - Impressions Impressions KUB X-Ray 10/21/18 09:59 IMPRESSION: Nonobstructive bowel gas pattern. D/ / Memo Jackson MD / Memo Jackson MD Interpreting Provider: Memo Jackson MD Chest X-Ray 10/22/18 04:00 IMPRESSION: Right basilar atelectasis. D/ / Dorothy Burkett MD / Dorothy Burkett MD Interpreting Provider: Dorothy Burkett MD Consult Discharge Plan - Plan Additional Instructions: Patient is toe-touch weight bearing to the right lower extremity Continue DVT prophylaxis, use Lovenox 30 mg subcutaneous every 12 hrs 2 weeks, followed by ASA 81 mg po QD x 4 wks Follow-up in office with Rhonda Wiley PA-C in 2 weeks Referrals: Michele Armando MD [Primary Care Provider] - <Vannesa Goldberg - Last Filed: 10/22/18 17:23> Hospitalist Progress Note - Encounter Date of Encounter: 10/22/18 - Exam Vitals: Temp Pulse Resp BP Pulse Ox 99.5 F 93 18 109/65 94 10/22/18 14:53 10/22/18 14:53 10/22/18 15:56 10/22/18 14:53 10/22/18 15:56 - Time Spent with Patient Total time spent is greater than 50% in coordination of care (as documented) at patient's floor/unit and/or counseling patient: Internal Medicine: Result - Labs CBC & Chem 7: 10/22/18 03:22 10/22/18 03:22 Labs: Short CBC 10/22/18 Range/Units 03:22 WBC 6.3 (4.3-11.1) K/mcL Hgb 11.0 L (12.9-16.9) g/dL Hct 32.5 L (37.5-50.1) % Plt Count 148 (140-400) K/mcL Neutrophils # 4.5 (1.6-8.9) K/mcL BMP 10/22/18 03:22 Sodium 136 Potassium 3.6 Chloride 99 Carbon Dioxide 22 L BUN 54 H Creatinine 1.89 H Glucose 164 H Calcium 8.2 L - ABG Interpretation ABG results: PT/INR, D-dimer PT 13.0 Seconds (9.4-12.1) H 10/18/18 14:00 - Impressions Impressions Chest X-Ray 10/22/18 04:00 IMPRESSION: Right basilar atelectasis. D/ / Dorothy Burkett MD / Dorothy Burkett MD Interpreting Provider: Dorothy Burkett MD - Attending Attestation I examined this patient and my medical decision-making was reviewed with the Resident Physician Dr Jeong. I agree with the documented findings, disposition and treatment plan as described except to the extent set forth below. Mr Almazan is admitted for hip fracture requiring surgical intervention awake, feels better today, no nausea, no abd pain or emesis. denies fevers or chills, + weak cough gen- alert, awake,appears stated age, fatigued appearing cv- reg rate and rhythm, normal s1,s2, no le edema lungs- ctabl in ant/lat remy without rhonchi, wheezing or crackles, poor inspiratory effort, normal resp effort on o2 nc neuro- AAOxperson, situation R femoral neck fracture s/p R hip pin 10/19, post op care as per ortho HFrEF EF 35-40%, net neg this admission- appears euvolemic and no fluid overload on CXR Acute Hypoxic resp failure suspect aspiration s/p emesis episode, CXR right basilar atelectasis -o2 nc, transition to augmentin as he has no wbc elevation or fever,complete empiric abx course for suspected early aspiration pna, 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 Emesis w/o abd pain, reoslved without intervention MARCELO likely 2/2 lasix yesterday- monitor output, old acei/hctz today, changed from zosyn to augmentin as he is nearing dc in effort to avoid addl nephro toxin HTN, now low normal BPs- holding med as above, cont to monitor, bps dropped with lasix yesterday, cont oral intake of fluids, cont monitoring for signs of infectious process further diagnoses and plan as noted by resident dispo will be back to snf when medically cleared __ <Tristan Jeong - Last Filed: 10/22/18 09:46> (2) Fracture of right hip Qualifiers: Encounter type: initial encounter Fracture type: closed Qualified Code(s): S72.001A - Fracture of unspecified part of neck of right femur, initial encounter for closed fracture (3) Heart failure with reduced ejection fraction Qualifiers: Heart failure chronicity: chronic Qualified Code(s): I50.22 - Chronic systolic (congestive) heart failure (4) CAD (coronary artery disease) Qualifiers: Coronary Disease-Associated Artery/Lesion type: bypass graft [place] vs. transplanted heart: [place] heart Associated angina: without angina Qualified Code(s): I25.810 - Atherosclerosis of coronary artery bypass graft(s) without angina pectoris (5) Type 2 diabetes mellitus Qualifiers: Diabetes mellitus detention insulin use: without rodent exterminator use Diabetes mellitus complication status: without complication Qualified Code(s): E11.9 - Type 2 diabetes mellitus without complications (7) Benign prostate hyperplasia Qualifiers: Lower urinary tract symptom presence: symptoms present Lower urinary tract symptom detail: urinary frequency Qualified Code(s): N40.1 - Benign prostatic hyperplasia with lower urinary tract symptoms; R35.0 - Frequency of micturition
[2018-10-23 04:25] LABS: Basophils % 0.2 %; Eosinophils # 0.1 K/mcL (0.0-0.6); Eosinophils % 2.2 %; Hematocrit 32.5 % (37.5-50.1); Hemoglobin 10.8 g/dL (12.9-16.9); Lymphocytes # 0.8 K/mcL (0.6-4.6); Lymphocytes % 14.3 %; Mean Corpuscular HGB Conc 33.2 g/dL (31.6-35.5); Mean Corpuscular Hemoglobin 28.2 pg (28.0-33.3); Mean Corpuscular Volume 84.9 fL (83.0-100.0); Mean Platelet Volume 9.6 fL (9.4-12.4); Monocytes # 0.7 K/mcL (0.0-1.3); Monocytes % 11.9 %; Platelet Count 161 K/mcL (140-400); Red Blood Count 3.83 M/mcL (4.19-5.50); Red Cell Distribution Width 12.8 % (11.5-14.5); Segmented Neutrophils % 70.4 %; White Blood Count 5.9 K/mcL (4.3-11.1)
[2018-10-23 04:29] LABS: Neutrophils # 4.2 K/mcL (1.6-8.9)
[2018-10-23] MEDS: Ipratropium/Albuterol Neb 3 ML IH SCH ×3 (04:38→15:29)
[2018-10-23 04:50] LABS: Calcium 8.5 mg/dL (8.6-10.3); Potassium 3.2 mEq/L (3.5-5.1)
[2018-10-23 04:52] LABS: Platelet Estimate Normal (Normal); Poikilocytosis 1+ (Not Present)
[2018-10-23] MEDS: *HR* Enoxaparin 30 MG/0.3 ML SYRINGE SQ SCH (06:38)
[2018-10-23] MEDS ORDERED: Potassium Chloride Elixir 20 MEQ/15 ML UDC PO ONE (07:21)
[2018-10-23] MEDS: Insulin LISPRO 300 UNITS/3 ML VIAL SQ SCH ×2 (08:01→12:47)
[2018-10-23] MEDS: BuPROPion XL (24 HR) 150 MG TABLET PO SCH (08:02)
[2018-10-23] MEDS: Aspirin 81 MG TAB.CHEW PO SCH (08:02)
--- NOTE | 2018-10-23 08:04 | Internal Med Progress Note ---
Hospitalist Progress Note - Encounter Date of Encounter: 10/23/18 Time of Encounter: 08:03 - Subjective Interval History: Patient is awake, alert, and comfortable. Was seen while rehab was in the room. Patient able to stand from bed and get into chair without significant discomfort. Reports continued improvement. Denies cp, sob, nausea, vomiting. - Exam Vitals: Temp Pulse Resp BP Pulse Ox 98.5 F 75 16 136/70 97 10/23/18 07:57 10/23/18 07:57 10/23/18 07:57 10/23/18 07:57 10/23/18 07:57 Exam: GA: Patient alert and oriented, in no acute distress. CV: RRR, S1/S2 WNL. No murmurs, rubs, gallops. Lungs: Coarse breath sounds with mild-moderate rales and rhonchi throughout. Cleared with cough as noted with previous exam. Otherwise breath sounds clear. GI: Abdomen soft and nontender, normoactive bowel sounds, no guarding. Neuro: Motor and sensation intact in bilateral distal lower extremities. Ext: No edema, cyanosis, pulses intact and symmetric. Skin: Skin warm and dry, bandage on right lateral thigh clean and dry and intact. - Assessment and Plan (1) Acute respiratory failure with hypoxia Current Visit: Yes Status: Acute Assessment and Plan: Patient with episodes of emesis, hypoxia, and dspynea 2 days ago concerning for aspiration PNA. He improved with supplemental oxygen, IV lasix, Duoneb. Feels well this morning, weakness and fatigue have improved. No supp o2 requirement at this time. - Zosyn discontinued 2/2 MARCELO. - Patient started on PO Augmentin. (2) Fracture of right hip Current Visit: Yes Status: Acute Assessment and Plan: S/P right hip pinning for non-displaced right femoral neck fracture. Completed pre-op cardiac clearance secondary to occasional dyspnea on exertion. Stress test was negative. Doing well with rehab, still endorses some weakness. - 2 person max assist, continue to work with rehabilitation - Improvement in aspiration pneumonia symptoms. Will continue to monitor. - Fall precautions. (3) Heart failure with reduced ejection fraction Current Visit: Yes Status: Chronic Assessment and Plan: History of HFrEF. Echo 10/18/18 demonstrates EF of 35-40% which is unchanged from 2012 exam. No symptoms of acute exacerbation. - Continue home Lopressor, lisinopril, hydrochlorothiazide (4) CAD (coronary artery disease) Current Visit: Yes Status: Chronic Assessment and Plan: Patient has history of coronary artery disease s/p CABG. Pre-op cardiology clearance w/negative pharmacologic stress test. - We will continue home aspirin and atorvastatin (5) Type 2 diabetes mellitus Current Visit: Yes Status: Chronic Assessment and Plan: Diabetic diet, before meals at bedtime Accu-Cheks, sliding scale insulin (6) Chronic anemia Current Visit: Yes Status: Chronic (7) Benign prostate hyperplasia Current Visit: Yes Status: Chronic Assessment and Plan: Patient has history of BPH, we will continue home oxybutynin and Flomax. Pt retaining urine. - Bueno catheter in place. Urine output good. - I and Os. (8) Anxiety Current Visit: Yes Status: Chronic Assessment and Plan: Asymptomatic, no complaints. Continue home Vistaril. DVT Prophylaxis: pneumatic compression - Time Spent with Patient Total time spent is greater than 50% in coordination of care (as documented) at patient's floor/unit and/or counseling patient: Plan of Care Discussed with: patient Internal Medicine: Result - Labs CBC & Chem 7: 10/23/18 03:59 10/23/18 03:59 Labs: Short CBC 10/23/18 Range/Units 03:59 WBC 5.9 (4.3-11.1) K/mcL Hgb 10.8 L (12.9-16.9) g/dL Hct 32.5 L (37.5-50.1) % Plt Count 161 (140-400) K/mcL Neutrophils # 4.2 (1.6-8.9) K/mcL BMP 10/23/18 03:59 Sodium 136 Potassium 3.2 L Chloride 96 L Carbon Dioxide 26 BUN 69 H Creatinine 1.68 H Glucose 168 H Calcium 8.5 L - ABG Interpretation ABG results: PT/INR, D-dimer PT 13.0 Seconds (9.4-12.1) H 10/18/18 14:00 Consult Discharge Plan - Plan Additional Instructions: Patient is toe-touch weight bearing to the right lower extremity Continue DVT prophylaxis, use Lovenox 30 mg subcutaneous every 12 hrs 2 weeks, followed by ASA 81 mg po QD x 4 wks Follow-up in office with Rhonda Saurabh PA-C in 2 weeks Referrals: Michele Armando MD [Primary Care Provider] - __ (2) Fracture of right hip Qualifiers: Encounter type: initial encounter Fracture type: closed Qualified Code(s): S72.001A - Fracture of unspecified part of neck of right femur, initial encounter for closed fracture (3) Heart failure with reduced ejection fraction Qualifiers: Heart failure chronicity: chronic Qualified Code(s): I50.22 - Chronic systolic (congestive) heart failure (4) CAD (coronary artery disease) Qualifiers: Coronary Disease-Associated Artery/Lesion type: bypass graft [place] vs. transplanted heart: [place] heart Associated angina: without angina Qualified Code(s): I25.810 - Atherosclerosis of coronary artery bypass graft(s) without angina pectoris (5) Type 2 diabetes mellitus Qualifiers: Diabetes mellitus residential insulin use: without long term care administrator use Diabetes mellitus complication status: without complication Qualified Code(s): E11.9 - Type 2 diabetes mellitus without complications (7) Benign prostate hyperplasia Qualifiers: Lower urinary tract symptom presence: symptoms present Lower urinary tract symptom detail: urinary frequency Qualified Code(s): N40.1 - Benign prostatic hyperplasia with lower urinary tract symptoms; R35.0 - Frequency of micturition
--- NOTE | 2018-10-23 11:30 | Discharge Summary ---
<Vannesa Goldberg - Last Filed: 10/23/18 12:44> Orders not resulted at time of discharge: Pending orders 10/20/18 23:43 Culture,Blood [BC] Routine Date of Encounter: 10/23/18 Hospital course: Mr. Almazan is a 73 year old male - Time Spent with Patient Total time spent providing and/or coordinating discharge services: - Discharge Medications Prescriptions: New Amoxicillin/Clavulanate [Augmentin] 875 mg PO BIDWM 12 Days #24 tablet Enoxaparin [Lovenox] 30 mg SQ Q12HCO 11 Days #22 syringe Continued hydrOXYzine HCl [Hydroxyzine HCl] 25 mg PO 0700,1500,2300 PRN PRN Reason: Itching Oxybutynin [Ditropan] 10 mg PO 0700,1700 Docusate [Colace] 100 mg PO 0700 Ibuprofen [Ibu] 400 mg PO 2200 PRN PRN Reason: Pain Bupropion HCl [Wellbutrin Xl] 300 mg PO 0700 LORazepam [Ativan] 1 mg PO TID PRN PRN Reason: Anxiety Atorvastatin [Lipitor] 40 mg PO 2200 Etanercept [Enbrel Sureclick] 50 mg SQ MOTH Tamsulosin [Flomax] 0.4 mg PO 0700 metFORMIN [Glucophage] 500 mg PO 0700,1700 Aspirin [Lo-Dose Aspirin EC] 81 mg PO 0700 [place]-3/Dha/Epa/Fish Oil [Fish Oil 1,000 mg Softgel] 2,000 mg PO 0700,1700 Metoprolol [Lopressor] 12.5 mg PO 0700,1700 Discontinued Lisinopril/Hydrochlorothiazide [Lisinopril-Hctz 20-25 mg Tab] 1 each PO 0700,1700 Home Medications: Aspirin [Lo-Dose Aspirin EC] 81 mg PO 0700 01/17/17 [History] Atorvastatin [Lipitor] 40 mg PO 2200 01/17/17 [History] Etanercept [Enbrel Sureclick] 50 mg SQ MOTH 01/17/17 [History] [place]-3/Dha/Epa/Fish Oil [Fish Oil 1,000 mg Softgel] 2,000 mg PO 0700,1700 01/17/17 [History] Tamsulosin [Flomax] 0.4 mg PO 0700 01/17/17 [History] metFORMIN [Glucophage] 500 mg PO 0700,1700 01/17/17 [History] Metoprolol [Lopressor] 12.5 mg PO 0700,1700 08/30/17 [History] Bupropion HCl [Wellbutrin Xl] 300 mg PO 0700 10/18/18 [History] Docusate [Colace] 100 mg PO 0700 10/18/18 [History] Ibuprofen [Ibu] 400 mg PO 2200 PRN 10/18/18 [History] LORazepam [Ativan] 1 mg PO TID PRN 10/18/18 [History] Oxybutynin [Ditropan] 10 mg PO 0700,1700 10/18/18 [History] hydrOXYzine HCl [Hydroxyzine HCl] 25 mg PO 0700,1500,2300 PRN 10/18/18 [History] Amoxicillin/Clavulanate [Augmentin] 875 mg PO BIDWM 12 Days #24 tablet 10/23/18 [Rx] Enoxaparin [Lovenox] 30 mg SQ Q12HCO 11 Days #22 syringe 10/23/18 [Rx] Allergies/Adverse Reactions: Allergy/AdvReac Type Severity Reaction Status Date / Time No Known Allergies Allergy Verified 08/30/17 13:05 Date of admission: 10/18/18 13:43 Primary care physician: Michele Armando MD Consults: 10/18/18 13:56 Consult to Nutrition [CONS] Routine Comment: Consulting Provider: NUTRITION Reason for Dietary Consult: Other MST Score Consult to Pipeman [CONS] Routine Reason for SW Consult: discharge planning 10/19/18 20:56 Consult to Occupational Therapy [CONS] Routine Comment: Evaluate, develop and implement POC Reason for Consult: post hip surgery Does patient have active BEDREST order?: No Is patient medically & hemodynamically stable?: Yes Patient assessed for mobility or mobilized this visit?: No Consult to Orthopedic Navigator [CONS] [CONS] Routine Consult to Pipeman [CONS] Routine Reason for SW Consult: post -op hip fracture RT Post Op Consult [CONS] Routine 10/22/18 11:47 Consult to Speech Therapy [CONS] Routine Comment: Evaluate, develop and implement POC Reason for Consult: dysphagia, risk of repeat aspiration Call Completed: No - Constitutional Vitals: Temp Pulse Resp BP Pulse Ox 98.4 F 74 16 105/68 95 10/23/18 11:54 10/23/18 11:54 10/23/18 11:54 10/23/18 11:54 10/23/18 11:54 - Patient Status Disposition: Transfer SNF Condition: Good - Discharge Instructions Follow Up With: Michele Armando MD [Primary Care Provider] - Alexis Garvey MD [Partnered Physician] - Additional Instructions: - Patient is toe-touch weight bearing to the right lower extremity - Continue DVT prophylaxis, use Lovenox 30 mg subcutaneous every 12 hrs until 11/03/18, followed by ASA 81 mg po QD - Continue PO Augmentin 875 mg BID for additional 7 days with daily probiotic. - Patient will require 0-2 L of oxygen via nasal cannula PRN. - Mancia catheter in place at discharge. Patient will need voiding trial in 2-3 days. - Follow-up in office with Rhonda Wiley PA-C in 2 weeks - Patient will need BMP in 2-3 days to monitor renal function and electrolytes. Hold Lisinopril and HCTZ until renal function is at baseline secondary to MARCELO. - Attending Attestation I examined this patient and my medical decision-making was reviewed with the Resident Physician Dr Jeong. I agree with the documented findings, disposition and treatment plan as described except to the extent set forth below. Mr Almazan is admitted for hip fracture requiring surgical intervention. Post operatively he had emesis that resulted in suspected aspiration. He is being discharged back to his SNF in stable condition awake, has no complaints today, feeling better, no sob, cough better, denies fevers or chills. no n/v. No hip pain. aware he will discharge back to snf today and he has no questions gen- alert, awake,appears stated age cv- reg rate and rhythm, normal s1,s2, no le edema lungs- ctabl normal resp effort on room air neuro- AAOxperson, situation R femoral neck fracture s/p R hip pin 10/19- fu with ortho outpt, toe-touch weightbearing to the right lower extremity, lovenox x 2 weeks for vte ppx HFrEF EF 35-40% stable, chronic Acute Hypoxic resp failure, resolved suspect aspiration s/p emesis episode, CXR right basilar atelectasis -o2 nc prn, augementin to complete empiric abx course for suspected early aspiration pna MARCELO likely 2/2 lasix improving- hold acei/hctz, bmp in upcoming days to ensure safe to resume, BP has remained stable, maintain mancia cath for U retention and voiding trial in upcoming days at SNF further diagnoses and plan as noted by resident time spent on dc 40 min <Tristan Jeong M - Last Filed: 10/23/18 15:54> - NOTES TO OUTPATIENT PROVIDER Notes to Outpatient Provider: Mr. Almazan is a 73 y/o M who presented to [facility] s/p fall at [facility] with complaints of right hip pain. CT of the head was negative for bleed and XR of right hip revealed non-displaced right femoral neck fracture. Orthopedic surgery was consulted for surgical management. Pinning of the right hip was performed w/o complication. The patient developed some nausea and brief episode of vomiting following procedure and developed likely aspiration pneumonitis. He was started on Duonebs, Lasix, oxygen, and IV abx with improvement in his symptoms. Mild-moderate MARCELO developed on IV abx so patient was started on PO augmentin. Patient performed well with PT/OT and plan to discharge back to [facility] on oral Augmentin for empirin pneumonitis coverage for 7 days. Monitor renal function with BMP in 2-3 days. Toe-touch weight bearing to the right lower extremity. Continue DVT prophylaxis, use Lovenox 30 mg subcutaneous every 12 hrs until 11/03/18. Patient will need voiding trial in 2-3 days for mancia cath.Total hospital stay 6 days. Orders not resulted at time of discharge: Pending orders 10/20/18 23:43 Culture,Blood [BC] Routine Date of Encounter: 10/23/18 Time of Encounter: 11:29 - Discharge Diagnosis (1) Fracture of right hip Priority: Primary Status: Resolved Assessment and Plan: Pt is s/p surgical pinning of right hip secondary to non-displaced fracture. Patient performed well with PT/OT. Plan per ortho: Patient is toe-touch weightbearing to the right lower extremity Continue DVT prophylaxis, use Lovenox 30 mg subcutaneous every 12 hrs 2 weeks, followed by ASA 81 mg po QD x 4 wks Follow-up in office with Rhonda Wiley PA-C in 2 weeks Qualifiers: Encounter type: initial encounter Fracture type: closed Qualified Code(s): S72.001A - Fracture of unspecified part of neck of right femur, initial encounter for closed fracture (2) Acute respiratory failure with hypoxia Priority: Secondary Status: Resolved Assessment and Plan: Patient with episodes of emesis, hypoxia, and dspynea 3 days ago concerning for aspiration pneumonitis. He improved with supplemental oxygen, IV lasix, Zosyn, Duoneb. - 0-2L O2 nasal cannula will be required at discharge/transfer to SNF. - IV Zosyn was discontinued yesterday 2/2 MARCELO. - Patient started on PO Augmentin 875 mg BID for empiric coverage of likely aspiration pneumonitis. Plan to continue for additional 7 days. (3) MARCELO (acute kidney injury) Priority: Secondary Status: Acute Assessment and Plan: Patient developed MARCELO on hospital day 5. Likely secondary to IV Zosyn. BUN, creatinine trending down to baseline since discontinuation of IV Zosyn. - Pt started of PO augmentin for suspected aspiration PNA. - Plan to hold lisinopril and HCTZ until f/u BMP in 2-3 days and return of renal function back to baseline. (4) Heart failure with reduced ejection fraction Priority: Secondary Status: Chronic Assessment and Plan: History of HFrEF. Echo 10/18/18 demonstrated EF of 35-40% which is unchanged from 2012 exam. No symptoms of acute exacerbation. - Continue home Lopressor. - Hold lisinopril, HCTZ until renal function returns to baseline. Qualifiers: Heart failure chronicity: chronic Qualified Code(s): I50.22 - Chronic systolic (congestive) heart failure (5) CAD (coronary artery disease) Priority: Secondary Status: Chronic Assessment and Plan: Patient has history of coronary artery disease s/p CABG. Pre-op cardiology clearance w/negative pharmacologic stress test. - Continue home aspirin and atorvastatin at discharge. Qualifiers: Coronary Disease-Associated Artery/Lesion type: bypass graft [place] vs. transplanted heart: [place] heart Associated angina: without angina Qualified Code(s): I25.810 - Atherosclerosis of coronary artery bypass graft(s) without angina pectoris (6) Type 2 diabetes mellitus Priority: Secondary Status: Chronic Assessment and Plan: Glucose remained stable on admission. Plan to continue home Metformin at discharge. - Monitor for hypoglycemia. Qualifiers: Diabetes mellitus termite renewal inspector insulin use: without nursing home use Diabetes mellitus complication status: without complication Qualified Code(s): E11.9 - Type 2 diabetes mellitus without complications (7) Chronic anemia Priority: Secondary Status: Chronic Assessment and Plan: Patient with chronic anemia. Hbg is at baseline. He is asymptomatic at discharge. - Continue routine monitoring. - PCP follow-up. (8) Benign prostate hyperplasia Priority: Secondary Status: Chronic Assessment and Plan: Patient has history of BPH and urinary retention. Mancia catheter placed on hospital day 5. - Plan to remove mancia for voiding trial in 2-3 days. - Continue home oxybutynin and Flomax. Qualifiers: Lower urinary tract symptom presence: symptoms present Lower urinary tract symptom detail: urinary frequency Qualified Code(s): N40.1 - Benign prostatic hyperplasia with lower urinary tract symptoms; R35.0 - Frequency of micturition Hospital course: Mr. Almazan is a 73 year old male w/PMHx of MRDD, falls, DM, HFrEF, BPH who presented to [facility] s/p fall at [facility] with complaints of right hip pain. Fall was unwitnessed and the patient reported having excitement following succesful BM. He stood from the toilet and developed dizziness and syncope. His head hit the back of the wall and he fell on his right hip. Upon admission, CT of the head was negative for bleed and XR of right hip revealed non-displaced right femoral neck fracture. He reported minimal pain at rest although he was unable to ambulate. Orthopedic surgery was consulted for surgical management. Pinning of the right hip was performed without complication. The patient later developed nausea, vomiting of unknown etiology and developed likely aspiration pneumonitis/hypoxia. He was started on Duonebs, Lasix, oxygen, and IV Zosyn with rapid improvement in his symptoms. Lungs were coarse to auscultation, however CXR was negative. During IV abx therapy, Mr. Almazan developed mild-moderate MARCELO. IV Zosyn was discontinued on hospital day 5 and patient was started on PO augmentin. Renal function trending to baseline on hospital day 6 (discharge). Patient performed well with PT/OT with plan to discharge back to SNF on oral Augmentin for empiric pneumonitis coverage for 7 days. Monitor renal function with BMP in 2-3 days. Toe-touch weight bearing to the right lower extremity. Continue DVT prophylaxis, use Lovenox 30 mg subcutaneous every 12 hrs until 11/03/18. Patient will need voiding trial in 2-3 days for mancia cath. Total hospital stay 6 days. Discharge discussed with: patient, nurse - Time Spent with Patient Total time spent providing and/or coordinating discharge services: Time spent: Greater than 30 minutes Date of admission: 10/18/18 13:43 Primary care physician: Michele Armando MD Consults: 10/18/18 13:56 Consult to Nutrition [CONS] Routine Comment: Consulting Provider: NUTRITION Reason for Dietary Consult: Other MST Score Consult to Pipeman [CONS] Routine Reason for SW Consult: discharge planning 10/19/18 20:56 Consult to Occupational Therapy [CONS] Routine Comment: Evaluate, develop and implement POC Reason for Consult: post hip surgery Does patient have active BEDREST order?: No Is patient medically & hemodynamically stable?: Yes Patient assessed for mobility or mobilized this visit?: No Consult to Orthopedic Navigator [CONS] [CONS] Routine Consult to Pipeman [CONS] Routine Reason for SW Consult: post -op hip fracture RT Post Op Consult [CONS] Routine 10/22/18 11:47 Consult to Speech Therapy [CONS] Routine Comment: Evaluate, develop and implement POC Reason for Consult: dysphagia, risk of repeat aspiration Call Completed: No Discharging clinician: Tristan Jeong Anticipated date of discharge: 10/23/18 - Constitutional Vitals: Temp Pulse Resp BP Pulse Ox 98.5 F 75 18 136/70 95 10/23/18 07:57 10/23/18 07:57 10/23/18 10:21 10/23/18 07:57 10/23/18 10:21 General appearance: Present: A&O X 3, pleasant, no acute distress Exam: see below - Head Head exam: Present: atraumatic, normocephalic - Eye Eye exam: Present: normal appearance, conjuntiva pink, sclera anicteric - ENT ENT exam: Present: mucous membranes moist, normal oropharynx - Neck Neck exam general surgery: Present: normal inspection, trachea midline - Respiratory Respiratory exam: Present: CTAB. Absent: rales, rhonchi, wheezes - Cardiovascular Cardiovascular exam: Present: RRR, +S1, +S2. Absent: diastolic murmur, JVD, systolic murmur - GI/Abdominal GI/Abdominal exam: Present: normal bowel sounds, soft. Absent: guarding, rebound, tenderness - Additional comments: Mancia catheter in place - Extremities Exam Extremities exam: Absent: cyanotic, joint swelling, pedal edema Additional comments: bandage on right lateral thigh clean and dry and intact. - Neurological Exam Neurological exam: Present: CN II-XII intact, no focal deficits. Absent: motor sensory deficit, speech deficit - Psychiatric Psychiatric exam: Present: normal affect, normal mood - Skin Skin exam: Present: dry, warm. Absent: rash - Patient Status Overall status at discharge: patient is progressing back to baseline - Diet and Activity Activity: as per physical therapy Diet: diabetic diet, low fat, low cholesterol, low salt diet
[2018-10-23 12:12] VITALS: BP 105/68
[2018-10-23] MEDS: Ondansetron 4 MG/2 ML VIAL IVP PRN (12:51)
[2018-10-23] MEDS: Acetaminophen 325 MG TABLET PO PRN (12:56)
--- NOTE | 2018-10-23 14:45 | Physician Discharge Referral ---
<Tristan Jeong - Last Filed: 10/23/18 14:51> ExtendedCare Referral Info Transfer To: [facility] Provider in Charge: Yumiko Goldberg Provider in Charge after Transfer: PCP Institutional Level of Care: Skilled - Diagnosis (1) Acute respiratory failure with hypoxia Priority: Secondary Status: Acute (2) Fracture of right hip Priority: Primary Status: Acute (3) Heart failure with reduced ejection fraction Priority: Secondary Status: Chronic (4) CAD (coronary artery disease) Priority: Secondary Status: Chronic (5) Type 2 diabetes mellitus Priority: Secondary Status: Chronic (6) Chronic anemia Priority: Secondary Status: Chronic (7) Benign prostate hyperplasia Priority: Secondary Status: Chronic (8) Anxiety Priority: Secondary Status: Chronic Prognosis: Good Aware of Diagnosis: Patient, Family Aware of Prognosis: Patient, Family - Transfer Medications Prescriptions: Amoxicillin/Clavulanate [Augmentin] 875 mg PO BIDWM 12 Days #24 tablet Enoxaparin [Lovenox] 30 mg SQ Q12HCO 11 Days #22 syringe Home Medications: Aspirin [Lo-Dose Aspirin EC] 81 mg PO 0700 01/17/17 [History] Atorvastatin [Lipitor] 40 mg PO 2200 01/17/17 [History] Etanercept [Enbrel Sureclick] 50 mg SQ MOTH 01/17/17 [History] [place]-3/Dha/Epa/Fish Oil [Fish Oil 1,000 mg Softgel] 2,000 mg PO 0700,1700 01/17/17 [History] Tamsulosin [Flomax] 0.4 mg PO 0700 01/17/17 [History] metFORMIN [Glucophage] 500 mg PO 0700,1700 01/17/17 [History] Metoprolol [Lopressor] 12.5 mg PO 0700,1700 08/30/17 [History] Bupropion HCl [Wellbutrin Xl] 300 mg PO 0700 10/18/18 [History] Docusate [Colace] 100 mg PO 0700 10/18/18 [History] Ibuprofen [Ibu] 400 mg PO 2200 PRN 10/18/18 [History] LORazepam [Ativan] 1 mg PO TID PRN 10/18/18 [History] Oxybutynin [Ditropan] 10 mg PO 0700,1700 10/18/18 [History] hydrOXYzine HCl [Hydroxyzine HCl] 25 mg PO 0700,1500,2300 PRN 10/18/18 [History] Amoxicillin/Clavulanate [Augmentin] 875 mg PO BIDWM 12 Days #24 tablet 10/23/18 [Rx] Enoxaparin [Lovenox] 30 mg SQ Q12HCO 11 Days #22 syringe 10/23/18 [Rx] Allergies/Adverse Reactions: Allergy/AdvReac Type Severity Reaction Status Date / Time No Known Allergies Allergy Verified 08/30/17 13:05 - Respiratory Orders Oxygen / L per min (0-2 L nasal cannula PRN) Smoking Cessation: Smoking cessation has been advised. For more information, call the [employer] Quit Line at 8-774-QCRO-NOW. - Lab Orders Lab Orders: Other (include drug levels w/frequency) (Patient will need BMP daily for 2-3 days to monitor renal function) - Ancillary Orders May use pressure relief devices daily prn - Advance Directives Code Status: Full Code - Mobility Orders Other (Toe touch weight bearing, fall precautions) - Rehabiliation Orders Rehab Potential: Good Rehab Orders: Evaluation for Physical Therapy, Evaluation for Occupational Therapy - Treatments List/Other: Patient is toe-touch weight bearing to the right lower extremity Continue DVT prophylaxis, use Lovenox 30 mg subcutaneous every 12 hrs until 11/03/18, followed by ASA 81 mg po QD Continue PO Augmentin 875 mg BID for additional 7 days with daily probiotic. Patient will require 0-2 L of oxygen via nasal cannula PRN. Bueno catheter in place at discharge. Patient will need voiding trial in 2-3 days. Follow-up in office with Rhonda Wiley PA-C in 2 weeks Patient will need daily BMP for 3-5 days to monitor renal function and electrolytes. Hold Lisinopril and HCTZ until renal function is at baseline secondary to MARCELO. - Diet Orders Regular (diabetic, low salt, low fat) CERTIFICATION: I certify that the transfer of the above named patient to an Extended Care Facility is necessary for the continuing treatment of the diagnosis listed. The above information is true and accurate reflection of patient's current condition. Confidential - Redisclosure prohibited without a patient's written consent. <Vannesa Goldberg - Last Filed: 10/23/18 15:31> - Respiratory Orders Smoking Cessation: Smoking cessation has been advised. For more information, call the [place] [employer] Quit Line at 8-286-EPQF-NOW. - Lab Orders Lab Orders: Other (include drug levels w/frequency) (Patient will need BMP in 2- 3 days to monitor renal function) - Mobility Orders Other - Treatments List/Other: Correction to above- BMP NOT daily, just obtain in 2-3 days to reassess creat level - Diet Orders Regular (diabetic, low salt, low fat, daily fluid restriction 1.8L) CERTIFICATION: I certify that the transfer of the above named patient to an Extended Care Facility is necessary for the continuing treatment of the diagnosis listed. The above information is true and accurate reflection of patient's current condition. Confidential - Redisclosure prohibited without a patient's written consent.
--- NOTE | 2018-10-23 15:49 | Electrocardiograph Report ---
[place] [address] Test Date: 2018-10-18 Pat Name: Fermin Almazan Department: 114 Room: [facility] Gender: M Warehouse Associate: : 1945 Requested By: Vannesa Goldberg Order Number: [id number] Reading MD: Jimmie Kim Measurements Intervals [place] Rate: 64 P: ND: 0 QRS: 46 QRSD: 113 T: 43 QT: 422 QTc: 432 Interpretive Statements Normal sinus rhythm INFERIOR MYOCARDIAL INFARCTION, PROBABLY OLD Electronically Signed On 10-23-2018 15:47:20 EDT by Jimmie Kim
--- NOTE | 2018-10-23 16:12 | Electrocardiograph Report ---
[address] [place], [place] [address] Test Date: 2018-10-23 Pat Name: Fermin Almazan Department: 114 Room: [facility] Gender: M Banking Consultant: [id number] : 1945 Requested By: Domniik Maier Order Number: [id number] Reading MD: Jimmie Kim Measurements Intervals [place] Rate: 79 P: 60 MO: 170 QRS: 40 QRSD: 114 T: 30 QT: 428 QTc: 463 Interpretive Statements SINUS RHYTHM WITH OCCASIONAL VENTRICULAR PREMATURE COMPLEXES WITH OCCASIONAL SUPRAVENTRICULAR PREMATURE COMPLEXES INDETERMINATE AXIS INFERIOR MYOCARDIAL INFARCTION, PROBABLY OLD Electronically Signed On 10-23-2018 16:11:24 EDT by Jimmie Kim
== END 2018-10-23 17:30 | DRG 480 ==
LOC: 3NENU → SUATTDRO 13:43 → 3NENU 10-20 21:04
PROVIDERS: ADMIT Internal Medicine; ATTEND Internal Medicine

== ENCOUNTER 2018-12-03 15:23 | Inpatient (IN) ==
[2018-12-03] MEDS ORDERED: 0.9 % Sodium Chloride 1,000 ML IVC ONE (15:39)
[2018-12-03] MEDS ORDERED: Piperacillin/Tazobactam 3.375 GM in Water for inj. (sterile) 20 ML IVP ONE (15:57)
[2018-12-03] MEDS ORDERED: Vancomycin (wt based) 1,000 MG VIAL IVPB ONE (16:01)
[2018-12-03] MEDS ORDERED: 0.9 % Sodium Chloride 1,000 ML IVC STA (16:02)
[2018-12-03] MEDS ORDERED: OLANZapine 5 MG TAB.RAPDIS PO STA (16:12)
[2018-12-03] MEDS ORDERED: Piperacillin/Tazobactam 3.375 GM in 0.9 % Sodium Chloride Mini Bag 100 ML IVPB ONE (16:15)
[2018-12-03 16:36] LABS: Basophils % 0.2 %; Eosinophils % 0.5 %; Hematocrit 31.6 % (37.5-50.1); Hemoglobin 10.1 g/dL (12.9-16.9); Immature Granulocytes % 0.5 % (0-4); Lymphocytes # 1.3 K/mcL (0.6-4.6); Lymphocytes % 14.9 %; Mean Corpuscular Hemoglobin 26.9 pg (28.0-33.3); Mean Corpuscular Volume 84.3 fL (83.0-100.0); Mean Platelet Volume 9.3 fL (9.4-12.4); Monocytes # 0.9 K/mcL (0.0-1.3); Monocytes % 10.5 %; Neutrophils # 6.4 K/mcL (1.6-8.9); Platelet Count 237 K/mcL (140-400); Red Blood Count 3.75 M/mcL (4.19-5.50); Red Cell Distribution Width 14.9 % (11.5-14.5); Segmented Neutrophils % 73.4 %; White Blood Count 8.8 K/mcL (4.3-11.1)
[2018-12-03] MEDS ORDERED: Acetaminophen 650 MG RECTAL SUPP RC STA (16:37)
[2018-12-03 16:47] LABS: INR 1.3
[2018-12-03 16:54] LABS: Alanine Aminotransferase 12 Units/L (7-52); Albumin 3.3 g/dL (3.5-5.7); Albumin/Globulin Ratio 0.9 (1.1-2.2); Alkaline Phosphatase 101 Units/L (34-104); Aspartate Amino Transferase 15 Units/L (13-39); BUN/Creatinine Ratio 14 (6-26); Bilirubin,Direct 0.2 mg/dL (0.0-0.2); Bilirubin,Indirect 0.4 mg/dL (0.0-1.0); Bilirubin,Total 0.6 mg/dL (0.3-1.0); Blood Urea Nitrogen 23 mg/dL (8-23); Calcium 8.8 mg/dL (8.6-10.3); Carbon Dioxide 26 mEq/L (23-29); Chloride 101 mEq/L (98-107); Globulin 3.5 g/dL (2.4-3.5); Glucose 132 mg/dL (70-105); Magnesium 1.1 mg/dL (1.6-2.6); Osmolality,Calculated 294 (280-300); Potassium 5.3 mEq/L (3.5-5.1); Sodium 139 mEq/L (136-145); Total Protein 6.8 g/dL (6.4-8.9); Troponin I < 0.03 ng/mL (< 0.04); eGFR For African Americans 51 (> 60); eGFR For Non-African Americans 42 (> 60)
[2018-12-03 18:04] LABS: Bilirubin,Urine Negative (Negative); Blood,Urine Large (Negative); Clarity,Urine Turbid (Clear); Color,Urine Red (Yellow); Glucose,Urine (UA) Normal (Normal); Ketones,Urine Trace mg/dL (Negative); Leukocyte Esterase,Urine Large (Negative); Nitrite,Urine Negative (Negative); Protein,Urine 100 mg/dL (Neg-Trace); Specific Gravity,Urine 1.017 (1.010-1.025); Urobilinogen,Urine Normal (Normal)
[2018-12-03 18:15] LABS: RBC,Urine TNTC per hpf (0-3); Squamous Epithelial Cell,Urine Few per lpf (None-Few); WBC,Urine TNTC per hpf (0-3)
[2018-12-03 18:16] LABS: Bacteria,Urine Moderate per hpf (None-Few)
[2018-12-03] MEDS ORDERED: Naloxone 0.4 MG/ML INJ IVP PRN (20:32)
[2018-12-03 21:59] LABS: BUN/Creatinine Ratio 15 (6-26); Blood Urea Nitrogen 20 mg/dL (8-23); Calcium 7.7 mg/dL (8.6-10.3); Carbon Dioxide 24 mEq/L (23-29); Chloride 107 mEq/L (98-107); Glucose 153 mg/dL (70-105); Magnesium 1.7 mg/dL (1.6-2.6); Osmolality,Calculated 288 (280-300); Potassium 4.9 mEq/L (3.5-5.1); Sodium 136 mEq/L (136-145); eGFR For African Americans > 60 (> 60); eGFR For Non-African Americans 51 (> 60)
[2018-12-04 05:54] LABS: Hematocrit 25.2 % (37.5-50.1); Mean Corpuscular HGB Conc 33.7 g/dL (31.6-35.5); Mean Corpuscular Hemoglobin 27.3 pg (28.0-33.3); Mean Platelet Volume 9.2 fL (9.4-12.4); Platelet Count 162 K/mcL (140-400); Red Blood Count 3.11 M/mcL (4.19-5.50)
[2018-12-04 05:55] LABS: Hemoglobin 8.5 g/dL (12.9-16.9)
[2018-12-04 08:23] LABS: BUN/Creatinine Ratio 16 (6-26); Blood Urea Nitrogen 18 mg/dL (8-23); Calcium 7.6 mg/dL (8.6-10.3); Carbon Dioxide 19 mEq/L (23-29); Chloride 107 mEq/L (98-107); Glucose 79 mg/dL (70-105); Magnesium 1.7 mg/dL (1.6-2.6); Osmolality,Calculated 285 (280-300); Potassium 4.8 mEq/L (3.5-5.1); Sodium 137 mEq/L (136-145); eGFR For African Americans > 60 (> 60); eGFR For Non-African Americans > 60 (> 60)
[2018-12-04] MEDS ORDERED: 0.9 % Sodium Chloride Mini Bag 100 ML ONE (08:47)
[2018-12-04] MEDS: Piperacillin/Tazobactam 3.375 GM in 0.9 % Sodium Chloride Mini Bag 100 ML IVPB SCH ×2 (08:56→15:33)
[2018-12-04] MEDS ORDERED: 0.9 % Sodium Chloride 1,000 ML IVC SCH (12:45)
[2018-12-04] MEDS ORDERED: 0.9 % Sodium Chloride 500 ML IVC SCH (15:45)
[2018-12-04] MEDS ORDERED: Dextrose Gel 15 GM/37.5 ML TUBE PO PRN ×2 (19:42)
[2018-12-04] MEDS ORDERED: D5% in Water 1,000 ML IVC PRN (19:42)
[2018-12-04] MEDS ORDERED: *HR* Dextrose 50 % in Water (Syg) 50 ML SYRINGE IVP PRN (19:42)
[2018-12-04] MEDS: Mirtazapine 15 MG TABLET PO SCH (20:09)
[2018-12-04] MEDS: Insulin LISPRO 300 UNITS/3 ML VIAL SQ SCH (20:10)
[2018-12-04] MEDS: Divalproex Sodium 125 MG CAPSULE PO SCH (20:10)
[2018-12-05] MEDS: Piperacillin/Tazobactam 3.375 GM in 0.9 % Sodium Chloride Mini Bag 100 ML IVPB SCH ×4 (00:03→23:52)
[2018-12-05 05:09] LABS: Basophils % 0.4 %; Eosinophils # 0.2 K/mcL (0.0-0.6); Eosinophils % 4.4 %; Hematocrit 25.2 % (37.5-50.1); Hemoglobin 8.4 g/dL (12.9-16.9); Immature Granulocytes % 0.4 % (0-4); Lymphocytes # 1.5 K/mcL (0.6-4.6); Lymphocytes % 30.6 %; Mean Corpuscular HGB Conc 33.3 g/dL (31.6-35.5); Mean Corpuscular Hemoglobin 27.1 pg (28.0-33.3); Mean Corpuscular Volume 81.3 fL (83.0-100.0); Mean Platelet Volume 9.5 fL (9.4-12.4); Monocytes # 0.6 K/mcL (0.0-1.3); Monocytes % 12.4 %; Neutrophils # 2.5 K/mcL (1.6-8.9); Platelet Count 179 K/mcL (140-400); Red Cell Distribution Width 14.9 % (11.5-14.5); Segmented Neutrophils % 51.8 %; White Blood Count 4.8 K/mcL (4.3-11.1)
[2018-12-05 05:31] LABS: % Iron Saturation 15 % (20-55); BUN/Creatinine Ratio 12 (6-26); Blood Urea Nitrogen 13 mg/dL (8-23); Calcium 7.9 mg/dL (8.6-10.3); Carbon Dioxide 24 mEq/L (23-29); Chloride 108 mEq/L (98-107); Glucose 96 mg/dL (70-105); Iron 21 mcg/dL (65-175); Osmolality,Calculated 290 (280-300); Potassium 4.1 mEq/L (3.5-5.1); Sodium 140 mEq/L (136-145); Transferrin 103 mg/dL (203-362); eGFR For African Americans > 60 (> 60); eGFR For Non-African Americans > 60 (> 60)
[2018-12-05 05:47] LABS: Ferritin 149 ng/mL (20-250)
[2018-12-05] MEDS ORDERED: Haloperidol Lactate 5 MG/ML VIAL IVP ONE (06:02)
[2018-12-05] MEDS ORDERED: Ringers Solution, Lactated 1,000 ML IVC ONE (07:24)
[2018-12-05] MEDS: BuPROPion XL (24 HR) 150 MG TABLET PO SCH (08:18)
[2018-12-05] MEDS: Divalproex Sodium 125 MG CAPSULE PO SCH ×2 (08:18→20:19)
[2018-12-05] MEDS: Insulin LISPRO 300 UNITS/3 ML VIAL SQ SCH ×4 (08:19→20:21)
[2018-12-05] MEDS: Mirtazapine 15 MG TABLET PO SCH (20:19)
[2018-12-05] MEDS: *HR* Heparin 5,000 UNIT/ML VIAL SQ SCH (21:05)
[2018-12-06] MEDS: *HR* Heparin 5,000 UNIT/ML VIAL SQ SCH ×3 (05:04→20:59)
[2018-12-06 05:44] LABS: Basophils % 0.4 %; Immature Granulocytes % 0.2 % (0-4); Mean Platelet Volume 9.8 fL (9.4-12.4); Segmented Neutrophils % 52.9 %
[2018-12-06 05:46] LABS: Eosinophils # 0.3 K/mcL (0.0-0.6); Eosinophils % 6.4 %; Hematocrit 26.7 % (37.5-50.1); Hemoglobin 9.2 g/dL (12.9-16.9); Immature Platelets 2.9 % (1.1-6.1); Lymphocytes # 1.4 K/mcL (0.6-4.6); Lymphocytes % 29.3 %; Mean Corpuscular HGB Conc 34.5 g/dL (31.6-35.5); Mean Corpuscular Hemoglobin 27.7 pg (28.0-33.3); Mean Corpuscular Volume 80.4 fL (83.0-100.0); Monocytes # 0.5 K/mcL (0.0-1.3); Monocytes % 10.8 %; Neutrophils # 2.5 K/mcL (1.6-8.9); Platelet Count 183 K/mcL (140-400); Red Blood Count 3.32 M/mcL (4.19-5.50); Red Cell Distribution Width 14.7 % (11.5-14.5); White Blood Count 4.7 K/mcL (4.3-11.1)
[2018-12-06 06:09] LABS: BUN/Creatinine Ratio 11 (6-26); Blood Urea Nitrogen 11 mg/dL (8-23); Calcium 7.9 mg/dL (8.6-10.3); Carbon Dioxide 22 mEq/L (23-29); Chloride 106 mEq/L (98-107); Glucose 97 mg/dL (70-105); Magnesium 1.3 mg/dL (1.6-2.6); Osmolality,Calculated 287 (280-300); Sodium 139 mEq/L (136-145); Transferrin 118 mg/dL (203-362); eGFR For African Americans > 60 (> 60); eGFR For Non-African Americans > 60 (> 60)
[2018-12-06 06:23] LABS: Ferritin 147 ng/mL (20-250)
[2018-12-06 06:28] LABS: Folate 8.1 ng/mL (3.0-16.0)
[2018-12-06 06:56] LABS: % Iron Saturation 16 % (20-55); Iron 26 mcg/dL (65-175)
[2018-12-06] MEDS: Divalproex Sodium 125 MG CAPSULE PO SCH ×2 (09:08→17:47)
[2018-12-06] MEDS: BuPROPion XL (24 HR) 150 MG TABLET PO SCH (09:09)
[2018-12-06] MEDS: Insulin LISPRO 300 UNITS/3 ML VIAL SQ SCH ×4 (09:09→20:57)
[2018-12-06] MEDS: Piperacillin/Tazobactam 3.375 GM in 0.9 % Sodium Chloride Mini Bag 100 ML IVPB SCH ×3 (09:09→23:59)
[2018-12-06] MEDS: Mirtazapine 15 MG TABLET PO SCH (17:47)
[2018-12-07] MEDS ORDERED: *HR* Promethazine 25 MG/ML VIAL IVP ONE (02:12)
[2018-12-07] MEDS ORDERED: Haloperidol Lactate 5 MG/ML VIAL IVP ONE ×2 (02:12→11:11)
[2018-12-07] MEDS ORDERED: *HR* Promethazine 25 MG/ML VIAL IM ONE (02:50)
[2018-12-07] MEDS ORDERED: Haloperidol Lactate 5 MG/ML VIAL IM ONE (02:50)
[2018-12-07] MEDS: *HR* Heparin 5,000 UNIT/ML VIAL SQ SCH (05:10)
[2018-12-07 07:31] LABS: Basophils % 0.6 %; Eosinophils # 0.3 K/mcL (0.0-0.6); Eosinophils % 5.1 %; Hematocrit 29.2 % (37.5-50.1); Hemoglobin 9.4 g/dL (12.9-16.9); Immature Granulocytes % 0.4 % (0-4); Lymphocytes # 1.2 K/mcL (0.6-4.6); Lymphocytes % 22.7 %; Mean Corpuscular HGB Conc 32.2 g/dL (31.6-35.5); Mean Corpuscular Hemoglobin 27.1 pg (28.0-33.3); Mean Corpuscular Volume 84.1 fL (83.0-100.0); Mean Platelet Volume 9.9 fL (9.4-12.4); Monocytes # 0.5 K/mcL (0.0-1.3); Monocytes % 9.4 %; Neutrophils # 3.2 K/mcL (1.6-8.9); Platelet Count 206 K/mcL (140-400); Red Blood Count 3.47 M/mcL (4.19-5.50); Red Cell Distribution Width 14.9 % (11.5-14.5); Segmented Neutrophils % 61.8 %; White Blood Count 5.1 K/mcL (4.3-11.1)
[2018-12-07 07:54] LABS: BUN/Creatinine Ratio 10 (6-26); Blood Urea Nitrogen 11 mg/dL (8-23); Calcium 8.2 mg/dL (8.6-10.3); Carbon Dioxide 23 mEq/L (23-29); Chloride 104 mEq/L (98-107); Glucose 111 mg/dL (70-105); Magnesium 1.6 mg/dL (1.6-2.6); Osmolality,Calculated 288 (280-300); Potassium 3.9 mEq/L (3.5-5.1); Sodium 139 mEq/L (136-145); eGFR For African Americans > 60 (> 60); eGFR For Non-African Americans > 60 (> 60)
[2018-12-07] MEDS: BuPROPion XL (24 HR) 150 MG TABLET PO SCH (07:55)
[2018-12-07] MEDS: Divalproex Sodium 125 MG CAPSULE PO SCH (07:55)
[2018-12-07] MEDS: Insulin LISPRO 300 UNITS/3 ML VIAL SQ SCH ×2 (07:57→12:18)
[2018-12-07] MEDS: Piperacillin/Tazobactam 3.375 GM in 0.9 % Sodium Chloride Mini Bag 100 ML IVPB SCH (07:58)
[2018-12-07 09:02] LABS: Estimated Average Glucose 146 mg/dl
[2018-12-07 12:03] VITALS: BP 123/91
[2018-12-07] MEDS ORDERED: FLU Vac QV 19-20 (6Month+)/PF 0.5 ML SYRINGE IM ONE (12:51)
== END 2018-12-07 14:00 | DRG 698 ==
LOC: 2ANU 15:23 → EMEROOARM 15:23 → SUATTDRO 20:11 → 2ANU 20:48 → SUATTDRO 12-04 14:49
PROVIDERS: ADMIT Family Medicine; ATTEND Pharmacist

== ENCOUNTER 2020-09-13 03:49 | Inpatient (IN) ==
[2020-09-13] MEDS ORDERED: Acetaminophen 325 MG TABLET PO PRN (06:45)
[2020-09-13] MEDS ORDERED: Ondansetron ODT 4 MG TAB.RAPDIS SL PRN (06:45)
[2020-09-13] MEDS ORDERED: 0.9 % Sodium Chloride 1,000 ML IVC SCH (06:45)
[2020-09-13] MEDS ORDERED: Naloxone 0.4 MG/ML INJ IVP PRN (06:45)
[2020-09-13] MEDS ORDERED: *HR* Dextrose 50 % in Water (Vial) 50 ML VIAL IVP PRN (06:48)
[2020-09-13] MEDS ORDERED: D5% in Water 1,000 ML IVC PRN (06:48)
[2020-09-13] MEDS ORDERED: Dextrose Gel 15 GM/37.5 ML TUBE PO PRN ×2 (06:48)
[2020-09-13 07:34] LABS: Basophils % 0.1 %; Eosinophils % 0.3 %; Hematocrit 30.3 % (37.5-50.1); Hemoglobin 9.9 g/dL (12.9-16.9); Immature Granulocytes % 0.4 % (0-4); Lymphocytes # 0.9 K/mcL (0.6-4.6); Lymphocytes % 11.6 %; Mean Corpuscular HGB Conc 32.7 g/dL (31.6-35.5); Mean Corpuscular Hemoglobin 28.4 pg (28.0-33.3); Mean Corpuscular Volume 87.1 fL (83.0-100.0); Mean Platelet Volume 9.7 fL (9.4-12.4); Monocytes # 0.5 K/mcL (0.0-1.3); Monocytes % 6.9 %; Platelet Count 114 K/mcL (140-400); Red Blood Count 3.48 M/mcL (4.19-5.50); Red Cell Distribution Width 13.9 % (11.5-14.5); Segmented Neutrophils % 80.7 %; White Blood Count 7.4 K/mcL (4.3-11.1)
[2020-09-13 07:54] LABS: Alanine Aminotransferase 15 Units/L (7-52); Albumin 3.1 g/dL (3.5-5.7); Albumin/Globulin Ratio 1.1 (1.1-2.2); Alkaline Phosphatase 77 Units/L (34-104); Aspartate Amino Transferase 14 Units/L (13-39); Bilirubin,Total 0.8 mg/dL (0.3-1.0); Blood Urea Nitrogen 41 mg/dL (8-23); Calcium 8.5 mg/dL (8.6-10.3); Carbon Dioxide 23 mEq/L (23-29); Chloride 103 mEq/L (98-107); Globulin 2.9 g/dL (2.4-3.5); Glucose 254 mg/dL (70-105); Magnesium 1.9 mg/dL (1.6-2.6); Osmolality,Calculated 295 (280-300); Potassium 4.3 mEq/L (3.5-5.1); Sodium 133 mEq/L (136-145)
[2020-09-13 08:21] LABS: Estimated Average Glucose 197 mg/dl; Hemoglobin A1C 8.5 %
[2020-09-13] MEDS: Insulin LISPRO 300 UNITS/3 ML VIAL SUBQ SCH ×6 (09:08→23:01)
[2020-09-13] MEDS ORDERED: Ringers Solution, Lactated 1,000 ML IVC SCH (09:30)
[2020-09-13 09:59] LABS: BUN/Creatinine Ratio 32 (6-26); eGFR For African Americans > 60 (> 60); eGFR For Non-African Americans 54 (> 60)
[2020-09-13] MEDS: Piperacillin/Tazobactam 3.375 GM in 0.9 % Sodium Chloride Mini Bag 100 ML IVPB SCH ×2 (10:31→19:30)
[2020-09-13] MEDS ORDERED: Ipratropium/Albuterol Neb 3 ML IH PRN (18:36)
[2020-09-13] MEDS ORDERED: Ipratropium/Albuterol Neb 3 ML ONE (18:43)
[2020-09-13] MEDS ORDERED: Furosemide 20 MG/2 ML VIAL IVP ONE ×2 (18:48→22:45)
[2020-09-13 19:08] LABS: ABG Base Excess 0 mEq/L (-2 to 3); ABG HCO3 24 mEq/L (21-27); ABG Oxygen Saturation 92 % (95-98); ABG PCO2 34 mmHg (35-45); ABG PH 7.45 pH Units (7.32-7.45); ABG PO2 60 mmHg (85-104); ABG TCO2 25 mEq/L (20-26)
[2020-09-13 21:47] LABS: Adenovirus Not Detected (Not Detect); Bordetella Pertussis Not Detected (Not Detect); Chlamydophila pneumoniae Not Detected (Not Detect); Coronavirus 229E Not Detected (Not Detect); Coronavirus HKU1 Not Detected (Not Detect); Coronavirus NL63 Not Detected (Not Detect); Coronavirus OC43 Not Detected (Not Detect); Human Metapneumovirus Not Detected (Not Detect); Human Rhinovirus/Enterovirus Not Detected (Not Detect); Influenza A Subtype 2009 H1 Not Detected (Not Detect); Influenza B Not Detected (Not Detect); Mycoplasma pneumoniae Not Detected (Not Detect); Parainfluenza Virus 1 Not Detected (Not Detect); Parainfluenza Virus 2 Not Detected (Not Detect); Parainfluenza Virus 3 Not Detected (Not Detect); Parainfluenza Virus 4 Not Detected (Not Detect); Respiratory Syncytial Virus Not Detected (Not Detect); SARS-CoV-2 Not Detected (Not Detect)
[2020-09-13] MEDS: Ipratropium 1 PUFF INHALER IH SCH (22:17)
[2020-09-13] MEDS ORDERED: *HR* Promethazine 25 MG/ML VIAL IM ONE (22:43)
[2020-09-13] MEDS: Mirtazapine 15 MG TABLET PO SCH (23:00)
[2020-09-13] MEDS: QUEtiapine Fumarate 25 MG TABLET PO SCH (23:00)
[2020-09-13] MEDS: Lactobacillus 1 EACH CAP.SPRINK PO SCH (23:00)
[2020-09-14] MEDS ORDERED: Ondansetron 4 MG/2 ML VIAL IVP PRN (01:02)
[2020-09-14 01:08] LABS: Acinetobacter baumannii by PCR Not Detected (Not Detect); Candida albicans by PCR Not Detected (Not Detect); Candida glabrata by PCR Not Detected (Not Detect); Candida krusei by PCR Not Detected (Not Detect); Candida parapsilosis by PCR Not Detected (Not Detect); Candida tropicalis by PCR Not Detected (Not Detect); Enterobacter cloacae Cmplx PCR Not Detected (Not Detect); Enterococcus by PCR Not Detected (Not Detect); Escherichia coli by PCR Not Detected (Not Detect); Klebsiella oxytoca by PCR Not Detected (Not Detect); Klebsiella pneumoniae by PCR Not Detected (Not Detect); Proteus by PCR DETECTED (Not Detect); Pseudomonas aeruginosa by PCR Not Detected (Not Detect); Serratia marcescens by PCR Not Detected (Not Detect); Staphylococcus aureus by PCR DETECTED (Not Detect); Streptococcus agalactiae(B)PCR Not Detected (Not Detect); Streptococcus by PCR Not Detected (Not Detect); Streptococcus pneumoniae PCR Not Detected (Not Detect); Streptococcus pyogenes (A) PCR Not Detected (Not Detect); mecA Methicillin-Resist Gene DETECTED (Not Detect)
[2020-09-14] MEDS ORDERED: Acetaminophen IV 500 MG/50 ML BAG IVPB ONE (01:20)
[2020-09-14] MEDS: Piperacillin/Tazobactam 3.375 GM in 0.9 % Sodium Chloride Mini Bag 100 ML IVPB SCH ×3 (02:00→17:15)
[2020-09-14 03:29] LABS: Hematocrit 32.4 % (37.5-50.1); Hemoglobin 10.6 g/dL (12.9-16.9); Lymphocytes # 0.4 K/mcL (0.6-4.6); Mean Corpuscular HGB Conc 32.7 g/dL (31.6-35.5); Mean Corpuscular Hemoglobin 28.4 pg (28.0-33.3); Mean Corpuscular Volume 86.9 fL (83.0-100.0); Mean Platelet Volume 10.4 fL (9.4-12.4); Platelet Count 102 K/mcL (140-400); Red Blood Count 3.73 M/mcL (4.19-5.50); Red Cell Distribution Width 13.8 % (11.5-14.5)
[2020-09-14 03:36] LABS: INR 1.2; Prothrombin Time 13.9 Seconds (9.4-12.1)
[2020-09-14] MEDS: Ipratropium 1 PUFF INHALER IH SCH ×4 (03:37→21:24)
[2020-09-14 03:48] LABS: BUN/Creatinine Ratio 23 (6-26); Blood Urea Nitrogen 31 mg/dL (8-23); Calcium 8.6 mg/dL (8.6-10.3); Carbon Dioxide 27 mEq/L (23-29); Chloride 100 mEq/L (98-107); Glucose 275 mg/dL (70-105); Osmolality,Calculated 298 (280-300); Potassium 4.1 mEq/L (3.5-5.1); Sodium 136 mEq/L (136-145); eGFR For African Americans > 60 (> 60); eGFR For Non-African Americans 52 (> 60)
[2020-09-14 03:50] LABS: % Iron Saturation 4 % (20-55); Iron 12 mcg/dL (65-175); Transferrin 204 mg/dL (203-362)
[2020-09-14 03:51] LABS: Neutrophils # 3.6 K/mcL (1.6-8.9); Platelet Estimate Slight Decrease (Normal)
[2020-09-14 04:08] LABS: Ferritin 226 ng/mL (20-250)
[2020-09-14 04:17] LABS: Folate > 22.3 ng/mL (3.0-16.0); Vitamin B12 513 pg/mL (250-1100)
[2020-09-14] MEDS: Vancomycin 1,250 MG/262.5 ML IV.SOLN IVPB SCH (05:01)
[2020-09-14] MEDS: Insulin LISPRO 300 UNITS/3 ML VIAL SUBQ SCH ×7 (07:22→21:00)
[2020-09-14] MEDS: Lactobacillus 1 EACH CAP.SPRINK PO SCH ×3 (07:23→20:56)
[2020-09-14] MEDS ORDERED: Iron Sucrose Complex 400 MG in 0.9 % Sodium Chloride 250 ML IVPB ONE (11:00)
[2020-09-14] MEDS ORDERED: E-Z-PAQUE (BARIUM SULF) SUSP 1 BOTTLE PO ONE (15:25)
[2020-09-14] MEDS ORDERED: E-Z-HD (BARIUM SULF) SUSPENSION PO ONE (15:25)
[2020-09-14] MEDS: Mirtazapine 15 MG TABLET PO SCH (20:55)
[2020-09-14] MEDS: QUEtiapine Fumarate 25 MG TABLET PO SCH (20:56)
[2020-09-15] MEDS: Piperacillin/Tazobactam 3.375 GM in 0.9 % Sodium Chloride Mini Bag 100 ML IVPB SCH ×3 (01:54→17:04)
[2020-09-15] MEDS: Ipratropium 1 PUFF INHALER IH SCH ×4 (03:15→22:15)
[2020-09-15] MEDS ORDERED: Acetaminophen 325 MG TABLET PO PRN (03:46)
[2020-09-15] MEDS: Vancomycin 1,250 MG/262.5 ML IV.SOLN IVPB SCH (04:04)
[2020-09-15 06:49] LABS: Hematocrit 28.5 % (37.5-50.1); Hemoglobin 9.8 g/dL (12.9-16.9); Immature Platelets 2.3 % (1.1-6.1); Mean Corpuscular HGB Conc 34.4 g/dL (31.6-35.5); Mean Corpuscular Hemoglobin 29.4 pg (28.0-33.3); Mean Corpuscular Volume 85.6 fL (83.0-100.0); Mean Platelet Volume 10.2 fL (9.4-12.4); Platelet Count 110 K/mcL (140-400); Red Blood Count 3.33 M/mcL (4.19-5.50); Red Cell Distribution Width 13.5 % (11.5-14.5); White Blood Count 4.6 K/mcL (4.3-11.1)
[2020-09-15 06:57] LABS: BUN/Creatinine Ratio 24 (6-26); Blood Urea Nitrogen 28 mg/dL (8-23); Calcium 7.8 mg/dL (8.6-10.3); Carbon Dioxide 23 mEq/L (23-29); Chloride 106 mEq/L (98-107); Glucose 249 mg/dL (70-105); Osmolality,Calculated 296 (280-300); Potassium 3.8 mEq/L (3.5-5.1); Sodium 136 mEq/L (136-145); eGFR For African Americans > 60 (> 60); eGFR For Non-African Americans > 60 (> 60)
[2020-09-15 07:09] LABS: Anisocytosis 1+ (Not Present); Lymphocytes # 1.1 K/mcL (0.6-4.6); Monocytes # 0.3 K/mcL (0.0-1.3); Neutrophils # 3.1 K/mcL (1.6-8.9); Platelet Estimate Slight Decrease (Normal)
[2020-09-15] MEDS: Insulin LISPRO 300 UNITS/3 ML VIAL SUBQ SCH ×7 (08:00→22:45)
[2020-09-15] MEDS: Lactobacillus 1 EACH CAP.SPRINK PO SCH ×2 (09:59→22:54)
[2020-09-15] MEDS ORDERED: Perflutren Lipid Microsphere 1.3 ML in 0.9 % Sodium Chloride 8.7 ML IVP PRN (13:59)
[2020-09-15] MEDS: QUEtiapine Fumarate 25 MG TABLET PO SCH (22:54)
[2020-09-15] MEDS: Mirtazapine 15 MG TABLET PO SCH (22:54)
[2020-09-16] MEDS: Piperacillin/Tazobactam 3.375 GM in 0.9 % Sodium Chloride Mini Bag 100 ML IVPB SCH ×2 (02:28→09:54)
[2020-09-16] MEDS: Ipratropium 1 PUFF INHALER IH SCH ×2 (03:34→11:08)
[2020-09-16] MEDS: Vancomycin 1,250 MG/262.5 ML IV.SOLN IVPB SCH (04:58)
[2020-09-16 05:44] LABS: Basophils % 0.4 %; Eosinophils # 0.1 K/mcL (0.0-0.6); Eosinophils % 1.3 %; Hematocrit 28.5 % (37.5-50.1); Hemoglobin 9.5 g/dL (12.9-16.9); Immature Granulocytes % 0.4 % (0-4); Lymphocytes # 1.2 K/mcL (0.6-4.6); Lymphocytes % 22.6 %; Mean Corpuscular HGB Conc 33.3 g/dL (31.6-35.5); Mean Corpuscular Volume 86.9 fL (83.0-100.0); Mean Platelet Volume 10.1 fL (9.4-12.4); Monocytes # 0.6 K/mcL (0.0-1.3); Monocytes % 11.5 %; Neutrophils # 3.3 K/mcL (1.6-8.9); Platelet Count 115 K/mcL (140-400); Red Blood Count 3.28 M/mcL (4.19-5.50); Red Cell Distribution Width 13.3 % (11.5-14.5); Segmented Neutrophils % 63.8 %; White Blood Count 5.2 K/mcL (4.3-11.1)
[2020-09-16 06:30] LABS: BUN/Creatinine Ratio 25 (6-26); Blood Urea Nitrogen 25 mg/dL (8-23); Calcium 7.9 mg/dL (8.6-10.3); Carbon Dioxide 23 mEq/L (23-29); Chloride 109 mEq/L (98-107); Glucose 176 mg/dL (70-105); Osmolality,Calculated 297 (280-300); Potassium 3.6 mEq/L (3.5-5.1); Sodium 139 mEq/L (136-145); eGFR For African Americans > 60 (> 60); eGFR For Non-African Americans > 60 (> 60)
[2020-09-16] MEDS: Lactobacillus 1 EACH CAP.SPRINK PO SCH ×2 (09:53→22:01)
[2020-09-16] MEDS: Insulin LISPRO 300 UNITS/3 ML VIAL SUBQ SCH ×6 (09:55→17:13)
[2020-09-16] MEDS ORDERED: Lidocaine -MPF 1% 5 ML AMPUL INFILT ONE (11:16)
[2020-09-16] MEDS: cefTRIAXone 2,000 MG in 0.9 % Sodium Chloride Mini Bag 100 ML IVPB SCH (12:25)
[2020-09-16] MEDS: Nystatin SUSP 5 ML UD.LIQ PO SCH ×3 (12:26→22:01)
[2020-09-16] MEDS: Ipratropium/Albuterol Neb 3 ML IH SCH ×3 (15:35→23:41)
[2020-09-16] MEDS: QUEtiapine Fumarate 25 MG TABLET PO SCH (22:01)
[2020-09-16] MEDS: Mirtazapine 15 MG TABLET PO SCH (22:01)
[2020-09-17] MEDS: Ipratropium/Albuterol Neb 3 ML IH SCH ×4 (03:22→15:50)
[2020-09-17] MEDS ORDERED: 0.9 % Sodium Chloride 250 ML ONE (05:32)
[2020-09-17] MEDS: Insulin LISPRO 300 UNITS/3 ML VIAL SUBQ SCH ×6 (05:44→16:27)
[2020-09-17 06:36] LABS: Eosinophils # 0.1 K/mcL (0.0-0.6); Hematocrit 23.8 % (37.5-50.1); Immature Granulocytes % 0.4 % (0-4); Lymphocytes % 18.2 %; Mean Corpuscular HGB Conc 33.2 g/dL (31.6-35.5); Mean Corpuscular Volume 87.5 fL (83.0-100.0); Mean Platelet Volume 9.7 fL (9.4-12.4); Monocytes # 0.5 K/mcL (0.0-1.3); Monocytes % 9.5 %; Neutrophils # 3.8 K/mcL (1.6-8.9); Platelet Count 106 K/mcL (140-400); Red Blood Count 2.72 M/mcL (4.19-5.50); Red Cell Distribution Width 13.5 % (11.5-14.5); Segmented Neutrophils % 69.9 %; White Blood Count 5.4 K/mcL (4.3-11.1)
[2020-09-17 06:39] LABS: Hemoglobin 7.9 g/dL (12.9-16.9)
[2020-09-17 06:55] LABS: BUN/Creatinine Ratio 18 (6-26); Blood Urea Nitrogen 21 mg/dL (8-23); Calcium 7.8 mg/dL (8.6-10.3); Carbon Dioxide 23 mEq/L (23-29); Chloride 109 mEq/L (98-107); Glucose 217 mg/dL (70-105); Osmolality,Calculated 300 (280-300); Potassium 3.3 mEq/L (3.5-5.1); Sodium 140 mEq/L (136-145); eGFR For African Americans > 60 (> 60); eGFR For Non-African Americans > 60 (> 60)
[2020-09-17] MEDS: cefTRIAXone 2,000 MG in 0.9 % Sodium Chloride Mini Bag 100 ML IVPB SCH (07:45)
[2020-09-17] MEDS: Lactobacillus 1 EACH CAP.SPRINK PO SCH (07:45)
[2020-09-17] MEDS: Nystatin SUSP 5 ML UD.LIQ PO SCH ×2 (07:45→12:49)
[2020-09-17 08:20] LABS: Hematocrit 27.4 % (37.5-50.1)
[2020-09-17 08:23] LABS: Hemoglobin 9.5 g/dL (12.9-16.9)
[2020-09-17] MEDS ORDERED: Lidocaine Viscous Oral Soln 15 ML SOLUTION MM PRN (13:19)
[2020-09-17] MEDS ORDERED: 0.9 % Sodium Chloride 500 ML IVC ONE (13:20)
[2020-09-17] MEDS ORDERED: *HR* Midazolam HCl 2 MG/2 ML VIAL IVP PRN (13:45)
[2020-09-17] MEDS ORDERED: *HR* Midazolam HCl 5 MG/5 ML VIAL IVP ONE ×2 (14:01→14:02)
[2020-09-17] MEDS: *HR* FentaNYL (PF) 100 MCG/2 ML VIAL IVP PRN ×4 (14:10→14:25)
[2020-09-17] MEDS: *HR* Midazolam HCl 5 MG/5 ML VIAL IVP PRN ×3 (14:10→14:20)
[2020-09-17] MEDS ORDERED: Metoprolol XL (24 HR) Succ 25 MG TAB.ER.24H PO SCH (14:30)
[2020-09-17 15:15] VITALS: BP 117/68; PULSE 81; TEMP 97.7
[2020-09-17] MEDS ORDERED: Potassium Chloride Elixir 20 MEQ/15 ML UDC PO ONE (15:17)
[2020-09-17 17:17] VITALS: O2SAT 97
== END 2020-09-17 17:29 | DRG 698 ==
LOC: 3ANU → OBSVTOIN 06:29 → SUATTDRO 06:29 → 2NENU 20:01
PROVIDERS: ADMIT Student in an Organized Health Care Education/Training Program; ATTEND Internal Medicine